=== PATIENT | male | born 1945 | race Caucasian/White ===

== ENCOUNTER 2016-08-24 19:05 | Emergency (ER) ==
[2016-08-24 19:10] VITALS: BP 146/88; TEMP 97.8; BMI 27.0
[2016-08-24 19:26] LABS: BASOPHILS % (AUTO) 0.5 % (0.0-3.0); EOSINOPHILS # (AUTO) 0.2 K/ul (0.0-0.7); EOSINOPHILS % (AUTO) 1.9 % (0.0-7.0); HEMATOCRIT 42.7 % (42.0-52.0); HEMOGLOBIN 15.3 g/dl (14.0-18.0); IMMATURE GRANULOCYTE % (AUTO) 0.4 % (0.0-5.0); LYMPHOCYTES # (AUTO) 2.1 K/uL (0.60-3.4); LYMPHOCYTES % (AUTO) 26.3 (10.0-50.0); MEAN CORPUSCULAR HEMOGLOBIN 32.8 pg (27.0-31.0); MEAN CORPUSCULAR HGB CONC 35.8 (31.8-35.4); MEAN CORPUSCULAR VOLUME 91.4 fl (80.0-94.0); MONOCYTES # (AUTO) 0.7 K/uL (0.4-2.0); MONOCYTES % (AUTO) 8.1 (0-10); NEUTROPHILS # (AUTO) 5.1 K/ul (2.0-6.9); NEUTROPHILS % (AUTO) 62.8; PLATELET COUNT 209 10^3/uL (140-440); RED BLOOD COUNT 4.67 10^6/ul (4.70-6.10); WHITE BLOOD COUNT 8.06 K/ul (4.2-10.2)
[2016-08-24] MEDS ORDERED: SODIUM CHLORIDE 1,000 ML IV STA (19:53)
[2016-08-24] MEDS ORDERED: NITROSTAT SL STA (19:53)
[2016-08-24] MEDS ORDERED: ASPIRIN CHEWABLE PO STA (19:56)
--- NOTE | 2016-08-24 19:57 | CT ---
EXAM: Noncontrast CT of the abdomen and pelvis. HISTORY: Pain. COMPARISON: None. TECHNIQUE: Contiguous axial images at 3 mm intervals were obtained from lung bases through the pelv is. No contrast was given. Coronal reformats were reviewed. FINDINGS: The study is limited without contrast. CHEST: The lung bases show no lobar consolidation or effusion. Linear opacities seen in the right l davy base which has appearance of fibrotic change. There is pleural thickening in the major fissure on the left. Coronary calcifications are seen.The heart size is within normal limits. ABDOMEN: Evaluation of the soft tissue organs is limited without contrast. LIVER: Noncontrast images of the liver show no solid mass lesion or intrahepatic ductal dilatation. BILIARY: The gallbladder is absent. There are clips in the gallbladder fossa. No fluid or inflamm ation. The common bile duct is normal. SPLEEN: The spleen is unremarkable. PANCREAS: The pancreas shows no mass lesion or peripancreatic inflammation. The pancreas is mildly atrophic. ADRENAL GLANDS: The adrenal glands are normal. RENAL: The kidneys show no hydronephrosis or nephrolithiasis. There are no obstructing ureteral st ones. No solid mass lesions are identified. RETROPERITONEUM: The aorta is unopacified. No aneurysm is identified. Heavy aortic calcifications are seen. There is no retroperitoneal or mesenteric adenopathy. BOWEL: The bowel is unopacified. There is no obstruction or inflammatory change. There is no free fluid or free air. No significant inflammatory changes are seen. The appendix is not identifie d. There is no fluid or inflammation in the right lower quadrant. Diverticulosis is seen in the de scending colon. There is no bowel wall thickening or surrounding inflammation. There is an umbilical hernia containing peritoneal fat. The defect measures approximately 1.8 cm. PELVIS: BLADDER: The bladder is well distended and appears normal. GENITOURINARY STRUCTURES: The prostate is unremarkable. OSSEOUS STRUCTURES: The osseous structures are normal for age. IMPRESSION 1. No acute intra-abdominal abnormality. Limited study without contrast. No obstructing ureteral stones. 2. The appendix is not identified. There is no fluid or inflammation in the right lower quadrant. 3. Diverticulosis without definite evidence of acute diverticulitis. 4. Coronary artery disease. Atherosclerotic disease of the aorta. 5. Post cholecystectomy.
--- NOTE | 2016-08-24 19:58 | CT ---
EXAM: CT THORAX HISTORY: Chest pain. TECHNIQUE: CT thorax without intravenous contrast. 5-mm axial sections. Coronal and sagittal re-fo rmations. COMPARISON: None FINDINGS: Normal heart size. No pericardial effusion. There is dilatation of the ascending aorta at 4 cm. M ild calcific atheromatous disease. A few nonspecific mediastinal and hilar lymph nodes. Lungs are mildly hyperinflated. Chronic appearing interstitial changes are seen throughout. There is discoid interstitial thickening along the posterior mediastinal pleura, right lower lobe. A few tiny nodular foci are seen in the lateral left lung base. Otherwise the lungs are unremarkable. Th ere is no vascular congestion, pleural fluid or pneumothorax. The bones appear demineralized. There is mild scoliosis. Mild to moderate degenerative endplate ch anges mid spine. Early ankylosis of the thoracic spine. No fracture is no acute fracture is seen. IMPRESSION: 1. Ascending aortic caliber dilatation to 4 cm. Mild atherosclerotic disease. 2. Chronic appearing interstitial changes are seen throughout. There is discoid interstitial thick ening along the posterior mediastinal pleura, right lower lobe and a few tiny nodular foci are seen in the lateral left lung base. These may be fibrotic in nature. Follow-up CT is recommended in 4-6 months. Otherwise the lungs are unremarkable.
[2016-08-24 20:19] LABS: ALBUMIN 3.9 g/dL (3.4-5.0); ALBUMIN/GLOBULIN RATIO 1.03; ANION GAP 14.5; BILIRUBIN,TOTAL 0.88 mg/dL (0.00-1.20); BUN/CREATININE RATIO 10.4; CALCIUM 9.2 mg/dL (8.2-10.2); CREATININE 1.25 mg/dL (0.60-1.10); POTASSIUM 3.5 mmol/L (3.5-5.1); TOTAL PROTEIN 7.7 g/dL (5.8-8.1); TROPONIN I 0.014 ng/ml (0.0000-0.4000)
[2016-08-24 20:21] LABS: CREATINE KINASE MB 9.7 ng/ml (0.0-3.6)
[2016-08-24] MEDS ORDERED: ZOFRAN 4 MG/2 ML IVP STA (20:28)
[2016-08-24] MEDS ORDERED: MORPHINE 4 MG/ML SYRINGE IVP STA (20:28)
[2016-08-24 20:32] LABS: BILIRUBIN,URINE Negative (NEGATIVE); KETONES,URINE Negative (NEGATIVE); LEUKOCYTE ESTERASE ,URINE Negative (NEGATIVE); NITRITE,URINE Negative (NEGATIVE); PROTEIN,URINE Negative (NEGATIVE); URINE, BLOOD Negative (NEGATIVE)
[2016-08-24 20:33] LABS: ADD URINE MICROSCOPIC NO
--- NOTE | 2016-08-24 20:43 | ED.PDOC ---
General ED Provider: Dr. ELIA HUTTON Chief Complaint: Chest Pain Stated Complaint: Patient is a 70 year old male who comes to the ER with chest pressure at rest and with activity. Describes it as a pressure rates it as 8/10 with radiation to the left arm. Denies any N/V or Diaphoresis Time Seen by Physician: 20:41 Mode of Arrival: Walk-In Information Source: Patient Primary Care Provider: RAOUL HUBER Nursing and Triage Documentation Reviewed and Agree: Yes Cardiovascular Complaint Exam - Chest Pain Complaint/Exam Onset: Gradual Duration: constant Symptoms Are: Still present Timing: Constant Length of Chest Pain Episodes: 2 days Initial Severity: Moderate Current Severity: Severe Location: Reports: Left anterior Pain Radiates: Reports: Left arm Character: Reports: Pressure Aggravating: Reports: Exertion Alleviating: Reports: None Associated Signs and Symptoms: Reports: Short of air. Denies: Diaphoresis, Nausea, Vomiting, Fever, Palpitations, Cough, Hemoptysis, Back pain, Abdominal pain, Dizziness, Calf pain, Calf swelling Related History: Denies: Similar episode, Current Freeman Inhibitors AMI/ACS Risk Factors: Reports: Myocardial Infarction, Family history, Hypertension, Dyslipidemia. Denies: Smoking TAD Risk Factors: Reports: Hypertension. Denies: Smoking Pulmonary Embolism Risk Factors: Denies: Recent travel, DVT, Previous PE, Smoking Prior Care for this Complaint: No Recent Stress Test: No (last stress test was was [address] Avalos) Recent Echo/LV Function: No JVD Present: No Subcutaneous Emphysema Present: No Diminshed Breath Sounds: No Reproducible Chest Wall Pain: No Bilateral Pulses Present: No Unequal Pulses Noted: No If Risk Factors for AMI/ACS Consider: EKG, Cardiac Enzymes, Oxygen, Aspirin Documents Reviewed: Labs, Imaging, EKG Differential Diagnoses: ACS, Pulmonary Edema Review of Systems - Review Of Systems Constitutional: Denies: Weakness, Loss of appetite Eyes: Reports: No symptoms Ears, Nose, Mouth, Throat: Reports: No symptoms Cardiac: Reports: Chest pain GI: Reports: No symptoms : Reports: No symptoms Musculoskeletal: Reports: No symptoms Skin: Reports: No symptoms Neurological: Reports: Anxiety Endocrine: Reports: No symptoms Hematologic/Lymphatic: Reports: No symptoms All Other Systems: Reviewed and Negative Past Medical History - Past Medical History Endocrine: Reports: Dyslipidemia Cardiovascular: Reports: CAD, Hypertension Respiratory: Reports: None Hematological: Reports: None Gastrointestinal: Reports: GERD Genitourinary: Reports: None Neuro/Psych: Reports: None Musculoskeletal: Reports: Arthritis Cancer: Reports: None - Surgical History General Surgical History: Reports: Cholecystectomy, Orthopedic (Fusion of C1-4 and C 5-6 ), Other (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 ) - Family History Family History: Reports: Heart - Social History Smoking Status: Never smoker Hx Substance Use: No Alcohol Screening: Occasionally - Immunizations Tetanus Shot up to Date: No Physical Exam - Physical Exam Appearance: Ill-appearing Ill-appearing: Moderate Pain Distress: Severe Eyes: PÉREZ, EOMI, Conjunctiva clear Neck: Supple Respiratory: Airway patent, Breath sounds clear, Breath sounds equal, Respirations nonlabored Cardiovascular: RRR, Pulses normal, No rub, No murmur GI/: Soft, Nontender, No masses, Bowel sounds normal, No Organomegaly Musculoskeletal: Normal strength, ROM intact, No edema, No calf tenderness Skin: Warm, Dry, Normal color Neurological: Sensation intact Psychiatric: Anxious Interpretation - Radiology Interpretation Radiology Interpretation By: Radiologist Radiology Results: No acute changes Exam Interpreted: CT 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 Rate: Normal Rhythm: Sinus Ectopy: None - EKG Interpretation Time of EKG #1: 19:15 Rate: Normal Rhythm: Sinus Ectopy: None Fisher: NL ST Segment: Normal Interpretation: normal EKG Physician Notification - Case Discussed Physician Notified: GILDARDO Time of Notification: 21:20 (Acepted pateint for transfer.) Critical Care Note - Critical Care Note Total Time (mins): 30 Course - Course Hematology/Chemistry: 08/24/16 19:15 08/24/16 19:15 Orders, Labs, Meds: Lab Review 08/24/16 08/24/16 19:15 20:20 WBC 8.06 RBC 4.67 L Hgb 15.3 Hct 42.7 MCV 91.4 MCH 32.8 H MCHC 35.8 H RDW Coeff of Melanie 12.4 Plt Count 209 Immature Gran % (Auto) 0.4 Neut % (Auto) 62.8 Lymph % (Auto) 26.3 [place] % (Auto) 8.1 Eos % (Auto) 1.9 Baso % (Auto) 0.5 Immature Gran # (Auto) 0.0 Neut # 5.1 Lymph # 2.1 [place] # 0.7 Eos # 0.2 Baso # 0.0 D-Dimer (Manual) 306.43 Sodium 139 Potassium 3.5 Chloride 103 Carbon Dioxide 25 Anion Gap 14.5 BUN 13 Creatinine 1.25 H Estimated GFR (MDRD) 57.00 BUN/Creatinine Ratio 10.40 Glucose 90 Calcium 9.2 Total Bilirubin 0.88 AST 26 ALT 30 Alkaline Phosphatase 78 Total Creatine Kinase 450 CK-MB (CK-2) 9.7 H* CK-MB (CK-2) % 2.87948 Troponin I 0.0140 Total Protein 7.7 Albumin 3.9 Globulin 3.8 Albumin/Globulin Ratio 1.03 Amylase 47 Lipase 17 Urine Color Yellow Urine Clarity Clear Urine pH 5.0 Ur Specific Range 1.010 Urine Protein Negative Urine Glucose (UA) Negative Urine Ketones Negative Urine Blood Negative Urine Nitrite Negative Urine Bilirubin Negative Urine Urobilinogen 0.2 Ur Leukocyte Esterase Negative Orders Category Date Time Status EKG-(ED ONLY) Stat CARDIO 08/24/16 19:09 Completed IV [ED IV/MEDIPORT/POWERPORT] .ONCE EMERGENCY 08/24/16 19:21 Active AMYLASE Stat LAB 08/24/16 19:15 Completed CBC W/ AUTO DIFF Stat LAB 08/24/16 19:15 Completed COMPREHENSIVE METABOLIC PANEL Stat LAB 08/24/16 19:15 Completed CREATINE KINASE Stat LAB 08/24/16 19:15 Completed D-DIMER Stat LAB 08/24/16 19:15 Completed LIPASE Stat LAB 08/24/16 19:15 Completed TROPONIN I Stat LAB 08/24/16 19:15 Completed URINALYSIS C & S IF INDICATED Stat LAB 08/24/16 20:20 Completed 0.9 % Sodium Chloride [Saline Flush] MEDS 08/24/16 19:21 Ordered 1 syr IVF PRN PRN Aspirin [Aspirin Chewable] MEDS 08/24/16 19:56 Discontinued 324 mg PO ONCE STA Morphine Sulfate [Morphine 4 mg/ml Syringe] MEDS 08/24/16 20:28 Discontinued 4 mg IVP ONCE STA Nitroglycerin [Nitrostat] MEDS 08/24/16 19:53 Discontinued 0.4 mg SL ONCE STA Ondansetron HCl/Pf [Zofran 4 mg/2 ml] MEDS 08/24/16 20:28 Discontinued 4 mg IVP ONCE STA Sodium Chloride 0.9% [Sodium Chloride] 1,000 ml MEDS 08/24/16 19:53 Active IV 100 mls/hr CT ABDOMEN/PELVIS WO CONTRAST Stat RADS 08/24/16 19:[address] CHEST W/O CONTRAST Stat RADS 08/24/16 19:10 Completed Medications Generic Name Dose Route Start Last Admin Trade Name Freq PRN Reason Stop Dose Admin Sodium Chloride 1,000 mls @ 100 mls/hr 08/24/16 19:53 08/24/16 20:00 Sodium Chloride IV 08/25/16 05:52 100 mls/hr .Q10H STA Administration Sodium Chloride 1 syr 08/24/16 19:21 08/24/16 20:00 Saline Flush IVF 1 syr PRN PRN Administration To flush IV Discontinued Medications Generic Name Dose Route Start Last Admin Trade Name Freq PRN Reason Stop Dose Admin Aspirin 324 mg 08/24/16 19:56 08/24/16 20:00 Aspirin Chewable PO 08/24/16 19:57 324 mg ONCE STA Administration Morphine Sulfate 4 mg 08/24/16 20:28 08/24/16 20:38 Morphine 4 Mg/Ml Syringe IVP 08/24/16 20:29 4 mg ONCE STA Administration Nitroglycerin 0.4 mg 08/24/16 19:53 08/24/16 20:00 Nitrostat SL 08/24/16 19:54 0.4 mg ONCE STA Administration Ondansetron HCl 4 mg 08/24/16 20:28 08/24/16 20:38 Zofran 4 Mg/2 Ml IVP 08/24/16 20:29 4 mg ONCE STA Administration Vital Signs: Temp Pulse Resp BP Pulse Ox 08/24/16 19:06 97.8 F 75 18 146/88 H 95 BAUTISTA Risk Score Age >/= 65: Yes >/= 3 CAD Risk Factors: Yes ASA Use in Past 7 Days: No Severe Angina (>/= 2 episodes in 24 hours): Yes EKG ST Changes >/= 0.5mm: No BAUTISTA Total Score: 3 BAUTISTA Risk Score: Risk Score Odds of by 30D 0 0.1 (0.1-0.2) 1 0.3 (0.2-0.3) 2 0.4 (0.3-0.5) 3 0.7 (0.6-0.9) 4 1.2 (1.0-1.5) 5 2.2 (1.9-2.6) 6 3.0 (2.5-3.6) 7 4.8 (3.8-6.1) Departure - Departure Time of Disposition: 21:31 Disposition: TSF SHORT-TRM HOSP Discharge Problem: Chest pain Condition: Serious Pt referred to PMD for follow-up: Yes Allergies/Adverse Reactions: Allergies alatrofloxacin mesylate [From Trovan] Allergy (Unverified 08/24/16 19:10) dexlansoprazole [From Dexilant] Allergy (Unverified 08/24/16 19:10) niacin [From Niaspan Extended-Release] Allergy (Unverified 08/24/16 19:10) trovafloxacin mesylate [From Trovan] Allergy (Unverified 08/24/16 19:10) lisinopril Adverse Reaction (Unverified 08/24/16 19:10) Home Medications: Ambulatory Orders Albuterol Sulfate [Proair Hfa] 2 inh PO BID PRN 01/22/13 Aspirin [Aspirin Chewable] 81 mg PO DAILY 01/22/13 Gabapentin [Neurontin] 2 tab PO TID 01/22/13 Hydrocodone/Acetaminophen [Lortab 5-500 Tablet] 1 tab PO BID PRN 01/22/13 Atorvastatin Calcium 40 mg PO DAILY 03/02/15 Metoprolol Succinate 150 mg PO DAILY 03/02/15 Omeprazole 20 mg PO DAILY 03/02/15 Tiotropium Anderson [Spiriva] 18 mcg IH DIRECTED PRN 03/02/15 Chlordiazepoxide/Clidinium Br [Librax Capsule] 1 each PO TID 06/20/16 Albuterol Sulfate [Proventil Hfa] 1 inh INH DIRECTED 08/24/16 Baclofen 10 mg PO TID 08/24/16 Budesonide/Formoterol Fumarate [Symbicort 80-4.5 Mcg Inhaler] 2 puff IH BID Chlorthalidone 25 mg PO DAILY 08/24/16
== END 2016-08-24 22:15 | disposition short-term general hospital (02) ==
LOC: ED 19:05
DX: R07.89 Other chest pain (principal); R06.02 Shortness of breath; R53.1 Weakness; E78.5 Hyperlipidemia, unspecified; I25.10 Atherosclerotic heart disease of native coronary artery without angina pectoris; I11.9 Hypertensive heart disease without heart failure; Z79.899 Other long term (current) drug therapy
CPT/HCPCS: 36415; 80053; 81001; 82150; 82550; 82553; 83690; 84484; 85025; 85379; 93005; 93010; 96360; 96361; 96375; 99285

== ENCOUNTER 2016-08-24 22:20 | Outpatient (CLI) ==
[2016-08-24 19:10] VITALS: BMI 27.0
== END 2016-08-24 22:21 | disposition home or self-care (01) ==
LOC: AMBL 22:20
PROVIDERS: ATTEND Internal Medicine Geriatric Medicine
DX: R07.9 Chest pain, unspecified (principal); R79.89 Other specified abnormal findings of blood chemistry

== ENCOUNTER 2017-01-02 06:40 | Day surgery (SDC) ==
[2017-01-02] MEDS ORDERED: LIDOCAINE 1% 20 ML MDV ID ONE (07:20)
[2017-01-02] MEDS ORDERED: VERSED ONE (07:50)
[2017-01-02] MEDS ORDERED: DIPRIVAN 20 ML VIAL IVP ONE (07:50)
[2017-01-02 08:52] VITALS: BP 143/92; TEMP 98
--- NOTE | 2017-01-03 06:47 | OP ---
INDICATIONS FOR PROCEDURE: 71-year-old gentleman with a history of adenomatous polyps on colonoscopy examination three years ago presents for colonoscopy. MEDICATIONS: SEE ANESTHESIA NOTES. PROCEDURE: COLONOSCOPY, SNARE POLYPECTOMY. REPORT: The risks, benefits, alternatives and limitations were discussed in detail with the patient. Informed consent was obtained. After adequate sedation was achieved, a digital rectal exam revealed good tone, no masses. The colonoscope was introduced into the rectum and advanced under direct visual guidance to the cecum. The cecum was identified by the appendiceal orifice and IC valve. In the cecum there is a diminituve 4 or 5 mm polyp. I removed this by snare technique. I then slowly withdrew the scope in a circumferential manner examining the mucosa quite carefully. I looked on the proximal and distal side of folds and flexures as best as possible. I was able to retroflex the scope in the right colon and left colon to increase visualization. I noted mild melanosis coli throughout the entire length of the colon but no other abnormalities were noted. The scope was retroflexed to look at the anal canal as well which was unremarkable. The prep was good. The withdrawal time was 7 minutes and 49 seconds. The patient tolerated the procedure well with stable vital signs and pulse oximetry throughout. IMPRESSION: 1. SMALL POLYP REMOVED 2. MELANOSIS COLI RECOMMENDATIONS: 1. High fiber diet 2. Office visit as needed 3. Await polyp pathology. If everything is benign, I recommend repeat colonoscopy examination again in 5 years, sooner if there are any signs or symptoms to indicate otherwise. CC: Dr. Geena GUEVARA [facility] HOSPITALCamilla
== END 2017-01-02 09:00 | disposition home or self-care (01) ==
LOC: SURG 06:40
PROVIDERS: ATTEND Internal Medicine Gastroenterology
DX: Z09 Encounter for follow-up examination after completed treatment for conditions other than malignant neoplasm (principal); Z86.010 Personal history of colon polyps; D12.0 Benign neoplasm of cecum; K63.89 Other specified diseases of intestine

== ENCOUNTER 2017-08-14 10:39 | Outpatient (POV) | payer OTHER | END 2017-08-14 17:00 | LOC: OUTPT 10:39 | PROVIDERS: ATTEND Otolaryngology | DX: H91.90 Unspecified hearing loss, unspecified ear (principal) | CPT/HCPCS: 92557; 92567 ==

== ENCOUNTER 2018-03-30 09:52 | Outpatient (CLI) | payer OTHER | END 2018-03-30 10:12 | disposition short-term general hospital (02) | LOC: AMBL 09:52 | PROVIDERS: ATTEND Emergency Medicine | DX: R47.9 Unspecified speech disturbances (principal); R29.810 Facial weakness; R53.1 Weakness; R26.81 Unsteadiness on feet ==

== ENCOUNTER 2018-04-19 10:10 | Outpatient (CLI) | payer OTHER ==
--- NOTE | 2018-04-19 13:02 | DI ---
EXAM: CHEST FRONTAL AND LATERAL VIEWS HISTORY: Cough, wheezing. COMPARISON: 11/06/2011 FINDINGS: Heart size remains within normal limits. There is minimal patchy density in the left base . There is diffuse, chronic appearing interstitial accentuation. Lungs are hyperinflated. Normal v ascularity. No pleural fluid. IMPRESSION: 1. Chronic-appearing interstitial changes with hyperinflation. Correlate clinically for any evidenc e of chronic obstructive pulmonary disease. 2. Minimal density in the left base could represent pneumonia. Consider follow-up to assure clearan ce.
== END 2018-04-19 10:11 | disposition home or self-care (01) ==
LOC: RAD 10:10
PROVIDERS: ATTEND Internal Medicine
DX: R06.2 Wheezing (principal); R05 Cough

== ENCOUNTER 2018-07-18 11:15 | Outpatient (CLI) | END 2018-07-18 11:16 | disposition home or self-care (01) | LOC: NONPT 11:15 | PROVIDERS: ATTEND Student in an Organized Health Care Education/Training Program | DX: Z12.5 Encounter for screening for malignant neoplasm of prostate (principal) ==

== ENCOUNTER 2025-02-12 08:17 | Inpatient (IN) ==
--- NOTE | 2025-02-12 08:26 | ED.PDOC ---
General [facility] ED Provider: Dr. ASHA SINGH MD Chief Complaint: Cough Stated Complaint: Patient is a 79-year-old male that reported to the emergency department via EMS for generalized weakness, cough, and diarrhea. Patient stated that yesterday he went to [place] and was fine was able to walk around without any issues. Patient stated that he started to get a productive cough last night that had yellowish sputum. Patient stated that he has not had any fever that he knows of. Patient stated that he woke up this morning and had generalized weakness. Patient stated that he normally ambulates with a walker but has not been able to ambulate due to his weakness this morning. EMS stated that the patient had an O2 sat of 85% on room air. They stated that the patient has home O2 2 L that he uses at night. Patient denied any chronic pulmonary disease. Patient stated that he has had a cough for several years however his cough has worsened as mentioned previously overnight. Patient stated that he does not know if he has been around any other sick contacts. Patient denied any chest pain, nausea, vomiting, dizziness, syncope, or loss of consciousness or any other acute symptoms not currently mentioned in his HPI. In the emergency department patient is tachycardic with a heart rate of 108 bpm. Patient's O2 sat on 2 L nasal cannula is 91%. Will increase patient's nasal cannula up to 4 L to keep his O2 sat above 94%. Patient is febrile with a temperature of 102.6 Fahrenheit. Patient's blood pressures 160/75. Patient's GCS is 15. NIH score is 0. Time Seen by Provider: 02/12/25 08:20 Mode of Arrival: Walk-In Information Source: EMT Exam Limitations: No limitations Primary Care Provider: RAOUL HUBER Nursing and Triage Documentation Reviewed and Agree: Yes Opioid Naive vs. Tolerant What is Opioid Naive?: *Opioid Naive implies the patient is not already taking opioids or not chronically receiving opioids on a daily basis. *PRN dosing is not "usually" associated with tolerance. *Patients are at higher risk of over-sedation and aspiration. What is Opioid Tolerant?: *Opioid Tolerance implies less than the expected response to an opioid. *Acquired tolerance is defined by the patient taking 60mg of oral morphine daily (or equianalgesic dose of another opioid) for 1 week or more. *Often associated with chronic pain. *May take more than usual dose to achieve desired pain control. Review of Systems Review Of Systems Constitutional: Reports No symptoms and Fever Respiratory: Reports Cough; Denies Stridor or Wheezing Neurological: Reports Weakness All Other Systems: Reviewed and Negative [facility] Medical History Anxiety Asthma Cervical pain Heart valve disease Hypertension Joint stiffness of spine Laceration of finger Muscle tightness Radicular pain Social History Smoking and tobacco status: Never smoker Alcohol intake: never Substance use type: does not use Housing: house Highest education level completed: high school graduate Current occupational status: retired Leisure activites: games and other History of recent travel: No Seatbelt use: always Drives intoxicated or rides with 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 Water heater temperature set < 120 degrees: Yes Working smoke detector in home: Yes Fire extinguisher in home: Yes Carbon monoxide detector in home: Yes Surgical History History of ear, nose, and throat (ENT) surgery History of gastrointestinal surgery Physical Exam Physical Exam Appearance: Reports Ill-appearing Ill-appearing: Moderate Pain Distress: None Eyes: Reports PÉREZ, EOMI and Conjunctiva clear ENT: Reports Nose normal and Oropharynx normal Neck: Supple Respiratory: Reports Airway patent, Breath sounds equal and Crackles (Crackles noted in the right lower lung field.) Cardiovascular: Reports Pulses normal, No rub and Tachycardia (Apical pulse is 108 bpm.) GI/: Reports Soft, Bowel sounds normal and Tender (Generalized tenderness to palpation.) Musculoskeletal: Reports Normal strength, ROM intact, No edema and No calf tenderness Skin: Reports Warm, Dry and Normal color Neurological: Reports Sensation intact, Motor intact, Alert and Oriented Psychiatric: Reports Affect appropriate and Mood appropriate Physician Progress Note Physician Progress Note: Patient is a 79-year-old male that reported to the emergency department via EMS for generalized weakness, cough, and diarrhea. Patient stated that yesterday he went to [place] and was fine was able to walk around without any issues. Patient stated that he started to get a productive cough last night that had yellowish sputum. Patient stated that he has not had any fever that he knows of. Patient stated that he woke up this morning and had generalized weakness. Patient stated that he normally ambulates with a walker but has not been able to ambulate due to his weakness this morning. EMS stated that the patient had an O2 sat of 85% on room air. They stated that the patient has home O2 2 L that he uses at night. Patient denied any chronic pulmonary disease. Patient stated that he has had a cough for several years however his cough has worsened as mentioned previously overnight. Patient stated that he does not know if he has been around any other sick contacts. Patient denied any chest pain, nausea, vomiting, dizziness, syncope, or loss of consciousness or any other acute symptoms not currently mentioned in his HPI. In the emergency department patient is tachycardic with a heart rate of 108 bpm. Patient's O2 sat on 2 L nasal cannula is 91%. Will increase patient's nasal cannula up to 4 L to keep his O2 sat above 94%. Patient is febrile with a temperature of 102.6 Fahrenheit. Patient's blood pressures 160/75. Patient's GCS is 15. NIH score is 0. - Due to patient's fever and tachycardia we will treat patient for sepsis. Will give the patient IV 1 L lactated ringer bolus. Will give the patient p.o. Tylenol 1 g for fever. Will give the patient broad-spectrum antibiotics for sepsis. Will give IV Zosyn 4.5 g. Will give IV methylprednisolone 125 mg once for inflammation. - Will order CT of the chest to rule out pneumonia as patient was found to have crackles in the right lower lobe. Will order CT of the abdomen and pelvis without contrast due to patient's generalized abdominal discomfort. - Will order EKG, troponin, and baseline labs - Will continue patient's O2 nasal cannula at 4 L nasal cannula to keep his O2 sat above 94%. - EKG shows sinus tachycardia with a ventricular rate of 105 bpm. Normal axis noted. No acute STEMI. EKG interpreted by ER physician. - Troponin is negative. - CT of the chest showed: 1. There is pneumonic infiltrate bilateral lungs with patchy opacities bilaterally most consistent with atypical pneumonia. Some scarring at the lung basis is suggested as well as groundglass opacities felt to represent earlier infiltrates. A well-defined mass or stand alone nodule is not seen. There are some underlying chronic changes otherwise. 2. Ascending aorta is prominent at 4.5 cm with vascular and coronary artery calcification without dissection suggested. Heart is prominent with mild pericardial fluid. 3. Likely reactive lymph nodes within the chest which are enlarged within the mediastinal region. 4. Small hiatal hernia without complication. 5. Fatty liver without abnormal finding. Cholecystectomy without abnormal finding. Minimal fatty atrophy of the pancreas. No acute process upper abdomen. 6. Bony degenerative change with osteopenia. Multilevel compression deformities some of which are similar when compared to the 2017 exam though a few are new or increased but of uncertain age as above. No displacement or other significant bony or soft tissue finding. - CT of the abdomen showed Coronary ASVD. Bilateral pneumonia. Follow-up to resolution is recommended. Prior cholecystectomy. Nonobstructive bilateral nephrolithiasis and bilateral renal cysts as described. Stool retention within the colon. Prominent small bowel within the pelvis which may be related to ileus versus gastroenteritis. Prostatic enlargement. - Per patient CURB 65 score patient rates to admission to the hospital. Will contact hospitalist for admission for this patient. - ([phone]) contacted hospitalist, Topher Monroy NP for admission for this patient. Was not able to get in touch with Topher. Will wait for return phone call. If no return phone call in approximately 5 to 10 minutes will try Topher again. - ([phone]) spoke to Topher Monroy NP hospitalist at [facility] about patient's bilateral pneumonia and other lab and radiograph findings at today's visit. She has agreed to admit this patient for bilateral pneumonia and acute hypoxic respiratory failure. Patient's vital signs are stable at time of admission. Critical Care Note Critical Care Note Total Critical Care Time (mins): 30 Comments: Critical Care Procedure Note Authorized and Performed by: Dr. Asha Singh MD, MPH Total critical care time: 30 minutes Due to a high probability of clinically significant, life threatening deterioration, the patient required my highest level of preparedness to intervene emergently and I personally spent this critical care time directly and personally managing the patient. This critical care time included obtaining a history; examining the patient; pulse oximetry; ordering and review of studies; arranging urgent treatment with development of a management plan; evaluation of patient's response to treatment; frequent reassessment; and, discussions with other providers. This critical care time was performed to assess and manage the high probability of imminent, life-threatening deterioration that could result in multi-organ failure. It was exclusive of separately billable procedures and treating other patients and teaching time. Please see MDM section and the rest of the note for further information on patient assessment and treatment. Course Course 02/12/25 08:35 02/12/25 08:35 Orders, Labs, Meds: Lab Review 02/12/25 02/12/25 08:35 09:37 WBC 6.90 RBC 3.66 L Hgb 11.4 L Hct 35.8 L MCV 97.8 H MCH 31.1 H MCHC 31.8 RDW Coeff of Melanie 12.9 Plt Count 153 Immature Gran % (Auto) 0.3 Neut % (Auto) 83.0 H Lymph % (Auto) 8.8 L Woodruff % (Auto) 6.8 Eos % (Auto) 1.0 Baso % (Auto) 0.1 Neut # (Auto) 5.7 Lymph # (Auto) 0.6 Woodruff # (Auto) 0.5 Eos # (Auto) 0.1 Baso # (Auto) 0.0 Immature Gran # (Auto) 0.0 Sodium 135.0 Potassium 4.64 Chloride 95.8 L Carbon Dioxide 30.6 H Anion Gap 13.24 BUN 13.7 Creatinine 1.21 H Estimated GFR (MDRD) 58.00 BUN/Creatinine Ratio 11.32 Glucose 104.4 Lactic Acid 1.69 Calcium 9.34 Magnesium 1.58 L Total Bilirubin 0.85 AST 35.5 ALT 22.7 Alkaline Phosphatase 74.6 Troponin I < 0.012 Total Protein 8.11 Albumin 3.97 Globulin 4.14 Albumin/Globulin Ratio 0.95 Procalcitonin < 0.05 Influ A Molecular Assay Negative by naat Influ B Molecular Assay Negative by naat SARS CoV-2 RNA Rapid NAHID Negative Orders Category Date Time Status EKG-(ED & IP/OBS ONLY) Stat CARDIO 02/12/25 08:20 Completed 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 President [employer] Sales [ED DEVELOPMENT LEAD APPLIED] .ONCE EMERGENCY 02/12/25 08:20 Active CBC W/ AUTO DIFF Stat LAB 02/12/25 08:35 Completed CMP [COMPREHENSIVE METABOLIC PANEL] Stat LAB 02/12/25 08:35 Completed COVID [SARS COV-2 RNA RAPID NAHID] Stat LAB 02/12/25 09:37 Completed FLU A & B MOLECULAR [FLU A/B MOLECULAR] Stat LAB 02/12/25 09:37 Completed LACTIC ACID Stat LAB 02/12/25 08:35 Completed MAGNESIUM Stat LAB 02/12/25 08:35 Completed PROCALCITONIN Stat LAB 12/18/25 08:35 Completed RAPID STREP SCREEN [MOLECULAR GROUP A STREP] Stat LAB 02/12/25 09:37 Completed TROPONIN I Stat LAB 02/12/25 08:35 Completed Methylprednisolone Sod Succ/Pf [Solu-Medrol 125 mg] Meds 02/12/25 10:13 Discontinued 125 mg IVP ONCE ONE Piperacillin Sodium/Tazobactam [Zosyn 4.5 gm] 4.5 gm Meds 02/12/25 08:29 Discontinued 0.9 % Sodium Chloride [Sodium Chloride 100Ml] 100 ml IV ONCE Ringers Lactated Solution [Lactated Ringers] 1,000 ml Meds 02/12/25 08:[address] ABDOMEN/PELVIS WO CONTRAST Stat RADS 02/12/25 08:[address] CHEST W/O CONTRAST Stat RADS 02/12/25 08:20 Completed Medications Discontinued Medications Generic Name Dose Route Start Last Admin Trade Name Freq PRN Reason Stop Dose Admin Lactated Ringer's 1,000 mls @ 1,000 mls/hr 02/12/25 08:20 02/12/25 10:12 Lactated Ringers IV 02/12/25 09:19 1,000 mls/hr BOLUS ONE Administration Piperacillin Sod/Tazobactam 100 mls @ 200 mls/hr 02/12/25 08:29 02/12/25 09:31 Sod 4.5 gm/ Sodium Chloride IV 02/12/25 08:58 200 mls/hr ONCE ONE Administration Methylprednisolone Sodium Succinate 125 mg 02/12/25 10:13 Methylprednisolone Sod Succ/Pf 125 Mg/2 Ml Vial IVP 02/12/25 10:14 ONCE ONE Vital Signs: Temp Pulse Resp BP Pulse Ox O2 Flow Rate 02/12/25 08:38 4 02/12/25 08:24 99.8 F 107 H 20 160/75 H 92 L Discharge Plan Discharge Patient Disposition: ADMITTED INPATIENT Discharge Problem: Acute hypoxic respiratory failure, Bilateral lower lobe pneumonia, Fatty liver, Hernia, hiatal, Degenerative disc disease, cervical, DDD (degenerative disc disease), thoracic, Bilateral nephrolithiasis, Bilateral renal cysts, Hypomagnesemia Sepsis Qualifiers: Sepsis type: sepsis due to unspecified organism Sepsis acute organ dysfunction status: with acute organ dysfunction Severe sepsis acute organ dysfunction type: acute respiratory failure Acute respiratory failure type: with hypoxia Severe sepsis shock status: without septic shock Qualified Code(s): A41.9 - Sepsis, unspecified organism Osteopenia Qualifiers: Osteopenia location: spine Qualified Code(s): M85.88 - Other specified disorders of bone density and structure, other site Did you review [place] [employer] for ALL controlled substances?: Not Applicable ED Provider: ASHA SINGH Condition: Stable
[2025-02-12 08:47] LABS: IMMATURE GRANULOCYTE # (AUTO) 0.0 (0.0-1.0); IMMATURE GRANULOCYTE % (AUTO) 0.3 % (0.0-5.0); RDW COEFFICIENT OF VARIATION 12.9 % (11.6-14.8)
[2025-02-12 08:59] LABS: CREATININE 1.21 mg/dL (0.60-1.10)
--- NOTE | 2025-02-12 09:28 | CT ---
EXAM: CHEST CT WITHOUT CONTRAST HISTORY: Cough. Rule out pneumonia. TECHNIQUE: CT acquisition of the chest from the thoracic inlet to the upper abdomen without IV contrast administration. 2-D coronal and sagittal reformatted images were obtained from the axial source images. IV Contrast: None. CT Dose Reduction Techniques Performed: Yes. COMPARISON: Abdomen and pelvis CT of the same date. Chest CT 08/24/2016. FINDINGS: Lines, Tubes, Devices: None. Lung Parenchyma and Airways: Central airways are patent without endobronchial lesion. There may be some bronchial wall thickening particularly within the lower lobes bilaterally. Patchy airspace opacities are seen throughout the lungs greatest within the lower lobes but also seen within the upper lobes particularly the left upper lobe most consistent with a tibial infiltrates. This is also seen within the right middle lobe. Well-defined suspicious stand alone nodule is not seen. Mild biapical pleural thickening and/or scar. Some scarring may again be present within the lower lung on the right and left. Pleural Space: No pleural effusion or thickening. No pneumothorax. Thoracic Inlet, Mediastinum, and Dina: Thyroid appears normal. Visualized esophagus has a normal appearance. There are lymph nodes which are prominent in the mediastinum and may be reactive. There is a 1.6 cm subcarinal lymph node and a 1.3 cm pretracheal and 1.5 cm. Tracheal lymph node as well as other smaller lymph nodes in the mediastinum and dina without well-defined mass. Heart, Vessels, and Pericardium: The main pulmonary artery is normal caliber. The thoracic aorta is not dilated. The ascending aorta is mildly prominent 4.5 cm. There is aortic valvular calcification and diffuse vascular calcifications of the great vessels and aorta without other aneurysm or evidence for intramural hemorrhage. There is calcification along the proximal SMA with a stent. The heart is prominent with mild pericardial fluid. Prominent coronary artery calcifications. Main pulmonary artery measures 3.3 cm. This can be seen in the setting of pulmonary arterial hypertension. Bones and Soft Tissues: Degenerative changes throughout the spine with osteopenia. No lytic or blastic lesion or fracture or dislocation is seen. Mild degenerative changes bilateral shoulders. Postoperative changes cervical spine appear intact as seen without complication or failure. There is height loss involving multiple vertebra including upper T3 and T4 and T5 and lower T10 and upper T12 as well as height loss at the L1 level. These are predominantly similar with the exception of the inferior T10 and the superior L1 and T12 levels which were not seen in 2017 but are of uncertain age. The soft tissues demonstrate nonenlarged lymph nodes in the axilla. There is no significant focal soft tissue finding. Upper Abdomen: Punctate nonobstructing intrarenal calculi are seen bilaterally with minimal perinephric fat stranding bilaterally. Spleen is upper limits of normal with splenic artery calcifications. Low attenuation of the liver likely fatty infiltration without significant or suspicious abnormal finding. Cholecystectomy without definite biliary abnormality. Mild fatty atrophy of the pancreas. Small hiatal hernia containing the upper fundus of the stomach without focal abnormal finding. Stool throughout the colon. No other acute process in the abdomen. IMPRESSION: 1. There is pneumonic infiltrate bilateral lungs with patchy opacities bilaterally most consistent with atypical pneumonia. Some scarring at the lung basis is suggested as well as groundglass opacities felt to represent earlier infiltrates. A well-defined mass or stand alone nodule is not seen. There are some underlying chronic changes otherwise. 2. Ascending aorta is prominent at 4.5 cm with vascular and coronary artery calcification without dissection suggested. Heart is prominent with mild pericardial fluid. 3. Likely reactive lymph nodes within the chest which are enlarged within the mediastinal region. 4. Small hiatal hernia without complication. 5. Fatty liver without abnormal finding. Cholecystectomy without abnormal finding. Minimal fatty atrophy of the pancreas. No acute process upper abdomen. 6. Bony degenerative change with osteopenia. Multilevel compression deformities some of which are similar when compared to the 2017 exam though a few are new or increased but of uncertain age as above. No displacement or other significant bony or soft tissue finding. Details, as above. All CT scans are performed using dose optimization techniques as appropriate to the performed exam and include at least one of the following: Automated exposure control, adjustment of the mA and/or kV according to size, and the use of iterative reconstruction technique.
[2025-02-12] MEDS: ZOSYN 4.5 GM 4.5 GM in SODIUM CHLORIDE 100ML 100 ML IV ONE (09:31)
--- NOTE | 2025-02-12 09:35 | CT ---
EXAM: CT SCAN ABDOMEN PELVIS WITHOUT CONTRAST HISTORY: Diarrhea with generalized abdominal pain COMPARISON: CT scan abdomen pelvis 08/24/2016 FINDINGS: Helically acquired axial images were obtained through the abdomen and pelvis without contrast utilizing 5-mm collimation. Sagittal and coronal reconstructions were imaged and reviewed. Evaluation is limited without intravenous contrast.. Heart is normal in size coronary ASVD. There is no pericardial effusion. There is bibasilar consolidation suggesting pneumonia. Ground-glass opacities are seen within the right middle lobe. There has been prior cholecystectomy. The liver, spleen and adrenal glands have normal unenhanced CT appearance. Pancreas is mildly atrophic. Small nonobstructive renal calculi noted bilaterally. There are several small hyperdense left-sided renal cysts.. There are simple right-sided renal cysts.. Dense atherosclerotic changes are seen involving the aorta without aneurysm. Mild stool retention is seen within the ascending, descending colon and rectum. . Mild diverticulosis without diverticulitis. There is gaseous distension of the sigmoid colon.. There are prominent air and fluid filled small bowel loops within the pelvis which may be related to ileus versus gastroenteritis. Prostate gland is enlarged. The bladder is unremarkable.. Bone windows reveals no lytic or blastic lesions. IMPRESSION: Coronary ASVD. Bilateral pneumonia. Follow-up to resolution is recommended. Prior cholecystectomy. Nonobstructive bilateral nephrolithiasis and bilateral renal cysts as described. Stool retention within the colon. Prominent small bowel within the pelvis which may be related to ileus versus gastroenteritis. Prostatic enlargement. All CT scans are performed using dose optimization techniques as appropriate to the performed exam and include at least one of the following: Automated exposure control, adjustment of the mA and/or kV according to size, and the use of iterative reconstruction technique.
[2025-02-12 10:02] LABS: MOLECULAR FLU A NEGATIVE BY NAAT (NEGATIVE); MOLECULAR FLU B NEGATIVE BY NAAT (NEGATIVE)
[2025-02-12] MEDS: LACTATED RINGERS 1,000 ML IV ONE (10:12)
[2025-02-12 10:15] LABS: SARS COV-2 RNA RAPID NAAT NEGATIVE (NEGATIVE)
[2025-02-12] MEDS: SOLU-MEDROL 125 MG IVP ONE (10:42)
[2025-02-12 12:01] VITALS: BMI 22.3
[2025-02-12] MEDS: ROCEPHIN 1 GM/50 ML D5W 1 GM/50 ML BAG IV SCH (12:55)
--- NOTE | 2025-02-12 13:14 | PCM ---
Date of Service Date Seen by Provider: 02/12/25 Time Seen by Provider: 12:00 Admit Day/Time Admission Date: 02/12/25 Admission Time: 10:15 Reason for Admission Chief Complaint: SEPSIS,BILATERAL PNUMONIA,ACUTE HYPOXIC RESP FAILU Hospital Provider Hospital Provider: BRAN LEOS, [facility] [place] Primary Care Physician Primary Care Physician: RAOUL HUBER History of Present Illness History of Present Illness: 79 yo male with pmh of asthma/COPD, sarcoidosis, CAD, CVA, and HTN presented to the ER for cough, weakness, sob, and diarrhea. States he has a chronic cough that is typically dry but occasionally produces yellow sputum. Has had productive cough last 2 days, had an episode of diarrhea this am, and fell attempting to get up off the toilet this am. Feels that his work of breathing is worse today. Typically wears 3.5L of O2 for sleep but does not require during the day. O2 sat was reported to be dropping into the 80s and was requiring up to 4L. He was found to have bilateral pneumonia and later developed a 100.7 temp. Blood cultures obtained. Given zosyn for sepsis coverage and a dose of steroids. Admitted to med/surg observation. Case Discussed With Case Discussed With: Patient's case was discussed with the ER Physicians, Dr. SINGLETARY Medical History Cervical spine fracture 3,4 and 5 then surgery on 6 and 7 S12.9XXA - Fracture of neck, unspecified, initial encounter (ICD-10) Stroke (2019) I63.9 - Cerebral infarction, unspecified (ICD-10) Muscle tightness M62.89 - Other specified disorders of muscle (ICD-10) Joint stiffness of spine M25.60 - Stiffness of unspecified joint, not elsewhere classified (ICD-10) Radicular pain M54.10 - Radiculopathy, site unspecified (ICD-10) Cervical pain M54.2 - Cervicalgia (ICD-10) Asthma for years J45.909 - Unspecified asthma, uncomplicated (ICD-10) Hypertension for years I10 - Essential (primary) hypertension (ICD-10) Anxiety F41.9 - Anxiety disorder, unspecified (ICD-10) Heart valve disease I38 - Endocarditis, valve unspecified (ICD-10) Laceration of finger S61.209A - UNSP OPEN WOUND OF UNSP FINGER W/O DAMAGE TO NAIL, INIT (ICD-10) Surgical History History of gastrointestinal surgery 2005 gall bladder Z98.890 - Other specified postprocedural states (ICD-10) History of ear, nose, and throat (ENT) surgery has done 3 surg sinus Z98.890 - Other specified postprocedural states (ICD-10) Social History Smoking and tobacco status: Never smoker Alcohol intake: never Substance use type: does not use Housing: house Highest education level completed: high school graduate Current occupational status: retired Leisure activites: games and other History of recent travel: No Seatbelt use: always Drives intoxicated or rides with intoxicated local driver: No Water heater temperature set < 120 degrees: Yes Working smoke detector in home: Yes Fire extinguisher in home: Yes Carbon monoxide detector in home: Yes Allergies Allergies Allergy/AdvReac Type Severity Reaction Status Date / Time alatrofloxacin mesylate Allergy Intermediate Anaphylaxis Verified 02/12/25 11:22 (From Trovan) trovafloxacin mesylate (From Allergy Intermediate Anaphylaxis Verified 02/12/25 11:22 Trovan) dexlansoprazole (From Allergy Mild REDNESS TO Verified 02/12/25 11:22 Dexilant) BODY, RASH niacin (From Niaspan Allergy Mild REDNESS TO Verified 02/12/25 11:22 Extended-Release) BODY, RASH lisinopril AdvReac Intermediate LIPS Verified 02/12/25 11:22 SWELLING Current Medications Home Medications Acetaminophen (Acetaminophen 325 Mg Tablet) 650 mg PO Q4H PRN PRN Reason: Mild Pain Hydrocodone Bitart/Acetaminophen (Hydrocodone Bit/Acetaminophen 5/325 Mg Tablet) 1 tab PO TID PRN PRN Reason: Pain Last Admin: 02/12/25 16:27 Dose: 1 tab Albuterol/Ipratropium (Ipratropium/Albuterol Vial.Neb) 3 ml NEB RTQ4H BOBBY Last Admin: 02/12/25 16:56 Dose: 3 ml Artificial Tears (Polyvinyl Alcohol 15 Ml Opth Tari) 1 drop EACHEYE TID [facility] Last Admin: 02/12/25 16:27 Dose: 1 drop Azelastine HCl (Azelastine Hcl 30 Ml Nasal [place]) 2 spray RUIZ 2XD [facility] Baclofen (Baclofen 10 Mg Tablet) 20 mg PO TID [facility] Last Admin: 02/12/25 16:27 Dose: 20 mg Budesonide/Formoterol Fumarate (Budesonide/Formoterol Fumarate 80/4.5 Mcg Hfa.Aer.Ad) 2 puff IH BID [facility] Cholecalciferol (Cholecalciferol (Vitamin D3) 1,000 Unit (25 Mcg) Tablet) 5,000 unit PO DAILY [facility] Clopidogrel Bisulfate (Clopidogrel Bisulfate 75 Mg Tablet) 75 mg PO DAILY [facility] Last Admin: 02/12/25 16:27 Dose: 75 mg Divalproex Sodium (Divalproex Sodium 250 Mg Tablet.Dr) 250 mg PO BID [facility] Doxycycline Hyclate (Doxycycline Hyclate 100 Mg Capsule) 100 mg PO Q12HR [facility] Stop: 02/17/25 09:01 Famotidine (Famotidine 20 Mg Tablet) 20 mg PO BID [facility] Gabapentin (Gabapentin 300 Mg Capsule) 300 mg PO TID [facility] Last Admin: 02/12/25 16:27 Dose: 300 mg CEFTRIAXONE/D5W 1 GM PREMIX (Rocephin 1 Gm/50 Ml D5w) 1 gm in 50 mls @ 100 mls/hr IV DAILY [facility] Stop: 02/15/25 11:59 Last Admin: 02/12/25 12:55 Dose: 100 mls/hr Methylprednisolone Sodium Succinate (Methylprednisolone Sod Succ/Pf 40 Mg/Ml Vial) 40 mg IVP Q8HR [facility] Last Admin: 02/12/25 17:53 Dose: 40 mg Metoprolol Succinate (Metoprolol Succinate 50 Mg Tab.Er.24h) 25 mg PO DAILY [facility] Non-Formulary Medication (Duloxetine) 20 mg PO DAILY [facility] Rosuvastatin Calcium (Rosuvastatin Calcium 10 Mg Tablet) 20 mg PO BEDTIME [facility] Tamsulosin HCl (Tamsulosin Hcl 0.4 Mg Cap.Er.24h) 0.4 mg PO QPM [facility] Last Admin: 02/12/25 16:27 Dose: 0.4 mg Tiotropium [place] (Tiotropium [place] 18 Mcg Cap.W.Dev) 1 cap IH DAILY [facility] Trazodone HCl (Trazodone Hcl 50 Mg Tablet) 50 mg PO BEDTIME PRN PRN Reason: Insomnia tiotropium bromide 18 mcg capsule with inhalation device (Spiriva with HandiHaler) 18 mcg inhalation DAILY 03/02/15 [History Confirmed 02/12/25] albuterol sulfate 90 mcg/actuation aerosol inhaler (Proventil HFA) 2 inh INH Q6H PRN SOB 08/24/16 [History Confirmed 02/12/25] metoprolol succinate 50 mg tablet,extended release 24 hr 25 mg PO DAILY 09/26/17 [History Confirmed 02/12/25] rosuvastatin 20 mg tablet (Crestor) 20 mg PO BEDTIME 07/17/18 [History Confirmed 02/12/25] baclofen 20 mg tablet 20 mg PO TID 02/11/20 [History Confirmed 02/12/25] budesonide-formoterol HFA 80 mcg-4.5 mcg/actuation aerosol inhaler (Symbicort) 2 puff inhalation DAILY 02/11/20 [History Confirmed 02/12/25] clopidogrel 75 mg tablet (Plavix) 75 mg PO QDAY 02/11/20 [History Confirmed 02/12/25] famotidine 20 mg tablet (Pepcid) 20 mg PO BID 02/11/20 [History Confirmed 02/12/25] gabapentin 300 mg capsule 300 mg PO TID 02/11/20 [History Confirmed 02/12/25] levocetirizine 5 mg tablet (Xyzal) 5 mg PO QPM 02/11/20 [History Confirmed 02/12/25] rimegepant 75 mg disintegrating tablet (Nurtec ODT) 75 mg PO DAILY PRN ANTI- MIGRAINE 02/11/20 [History Confirmed 02/12/25] tamsulosin 0.4 mg capsule (Flomax) 0.4 mg PO QDAY 02/11/20 [History Confirmed 02/12/25] carboxymethylcellulose sodium 0.5 % eye drops in a dropperette 1 drp BOTHEYES TID 05/03/21 [History Confirmed 02/12/25] cholecalciferol (vitamin D3) 125 mcg (5,000 unit) tablet (Vitamin D3) 125 mcg PO DAILY 05/03/21 [History Confirmed 02/12/25] denosumab 60 mg/mL subcutaneous syringe (Prolia) 60 mg subcut [id number] 05/03/21 [History Confirmed 02/12/25] teriparatide 20 mcg/dose (560 mcg/2.24 mL) subcutaneous pen injector (Forteo) 20 mcg subcut QMONTH 05/03/21 [History Confirmed 10/04/22] divalproex 250 mg tablet,delayed release 250 mg PO BID 04/05/22 [History Confirmed 02/12/25] azelastine 137 mcg (0.1 %) nasal spray 2 spray intranasal 2XD 02/12/25 [History Confirmed 02/12/25] betamethasone dipropionate 0.05 % topical cream 1 applic topical BID 02/12/25 [History Confirmed 02/12/25] duloxetine 20 mg capsule,delayed release 20 mg PO DAILY 02/12/25 [History Confirmed 02/12/25] hydrocodone 5 mg-acetaminophen 325 mg tablet 1 tab PO TID PRN pain 02/12/25 [History Confirmed 02/12/25] sodium polystyrene sulfonate 15 gram-sorbitol 20 gram/60 mL oral susp (SPS (with sorbitol)) 60 ml PO 2 TIMES PER WEEK 02/12/25 [History Confirmed 02/12/25] trazodone 50 mg tablet 50 mg PO BEDTIME PRN insomnia 02/12/25 [History Confirmed 02/12/25] Opioid Naive vs. Tolerant Does Patient Take Opioids?: Yes Is Patient Opioid Naive?: No What is Opioid Naive?: *Opioid Naive implies the patient is not already taking opioids or not chronically receiving opioids on a daily basis. *PRN dosing is not "usually" associated with tolerance. *Patients are at higher risk of over-sedation and aspiration. Is Patient Opioid Tolerant?: No What is Opioid Tolerant?: *Opioid Tolerance implies less than the expected response to an opioid. *Acquired tolerance is defined by the patient taking 60mg of oral morphine daily (or equianalgesic dose of another opioid) for 1 week or more. *Often associated with chronic pain. *May take more than usual dose to achieve desired pain control. Review of Systems Constitutional: Reports Weakness Head: Reports Normocephalic Eyes: Reports No symptoms Ears: Reports No symptoms Nose: Reports No symptoms Mouth: Reports No symptoms Throat: Reports No symptoms Cardiovascular: Reports No symptoms Respiratory: Reports Cough and Shortness of air Gastrointestinal: Reports Diarrhea Genitourinary: Reports No Symptoms Musculoskeletal: Reports No symptoms Endocrine: Reports No symptoms Hematology: Reports No symptoms Immunology: Reports No symptoms Neurological: Reports No symptoms Psychiatric: Reports No symptoms Physical examination Most Recent Vital Signs: Most Recent Vital Signs Temperature 98.7 F 02/12/25 11:45 Temperature Source Oral 02/12/25 11:45 Temperature Source Tympanic 02/12/25 11:17 Pulse Rate 89 02/12/25 11:45 Respiratory Rate 16 02/12/25 11:45 Blood Pressure 160/75 H 02/12/25 08:24 Blood Pressure Left Arm 123/75 02/12/25 11:45 Blood Pressure Position Supine 02/12/25 11:45 O2 Sat by Pulse Oximetry 93 L 02/12/25 11:45 Oxygen Delivery Method Nasal Cannula 02/12/25 11:45 Oxygen Flow Rate 3 02/12/25 11:45 Height 6 ft 1 in 02/12/25 11:45 Weight 76.7 kg 02/12/25 11:45 Telemetry Type Remote Telemetry 02/12/25 11:47 Telemetry Monitoring Started 02/12/25 11:47 Telemetry Heart Rate 88 02/12/25 11:47 Telemetry SPO2 91 L 02/12/25 11:47 EKG VA Interval 0.18 02/12/25 11:47 EKG QRS Interval 0.07 02/12/25 11:47 Telemetry Strip Reading INITIAL NSR 02/12/25 11:47 Appearance: Positive No Apparent Distress and Alert and Oriented x3 Skin: Positive Warm and Good Color HEENT: Positive Normocephalic and PERRLA Neck: Positive Supple and Midline Trachea Chest/Lungs: Positive Symmetrical With Equal Breath Sounds, Rhonci, Wheezes and Good Air Movement all 4 Lung Renee Heart: Positive RRR and Pulses Normal GI/: Positive Soft, Nontender, Bowel Sounds Normal and No Distention Musculoskeletal: Positive Not Examined Extremities: Positive Intact Peripheral Pulses, Stable Joints Without Laxity and Good ROM in All Joints; Negative Edema Neurological: Positive Sensation Intact, Motor intact, Reflexes Intact, Alert, Oriented and Other (generalized weakness) Labs This Visit Labs This Visit: Labs This Visit 02/12/25 02/12/25 08:35 09:37 WBC 6.90 RBC 3.66 L Hgb 11.4 L Hct 35.8 L MCV 97.8 H MCH 31.1 H MCHC 31.8 RDW Coeff of Melanie 12.9 Plt Count 153 Immature Gran % (Auto) 0.3 Neut % (Auto) 83.0 H Lymph % (Auto) 8.8 L Roberts % (Auto) 6.8 Eos % (Auto) 1.0 Baso % (Auto) 0.1 Neut # (Auto) 5.7 Lymph # (Auto) 0.6 Roberts # (Auto) 0.5 Eos # (Auto) 0.1 Baso # (Auto) 0.0 Immature Gran # (Auto) 0.0 Sodium 135.0 Potassium 4.64 Chloride 95.8 L Carbon Dioxide 30.6 H Anion Gap 13.24 BUN 13.7 Creatinine 1.21 H Estimated GFR (MDRD) 58.00 BUN/Creatinine Ratio 11.32 Glucose 104.4 Lactic Acid 1.69 Calcium 9.34 Magnesium 1.58 L Total Bilirubin 0.85 AST 35.5 ALT 22.7 Alkaline Phosphatase 74.6 Troponin I < 0.012 Total Protein 8.11 Albumin 3.97 Globulin 4.14 Albumin/Globulin Ratio 0.95 Procalcitonin < 0.05 Influ A Molecular Assay Negative by naat Influ B Molecular Assay Negative by naat SARS CoV-2 RNA Rapid NAHID Negative Microbiology This Visit 02/12/25 09:37 Throat Group A Strep Molecular Assay - Final Imaging Imaging: EXAM: CHEST CT WITHOUT CONTRAST HISTORY: Cough. Rule out pneumonia. TECHNIQUE: CT acquisition of the chest from the thoracic inlet to the upper abdomen without IV contrast administration. 2-D coronal and sagittal reformatted images were obtained from the axial source images. IV Contrast: None. CT Dose Reduction Techniques Performed: Yes. COMPARISON: Abdomen and pelvis CT of the same date. Chest CT 08/24/2016. FINDINGS: Lines, Tubes, Devices: None. Lung Parenchyma and Airways: Central airways are patent without endobronchial lesion. There may be some bronchial wall thickening particularly within the lower lobes bilaterally. Patchy airspace opacities are seen throughout the lungs greatest within the lower lobes but also seen within the upper lobes particularly the left upper lobe most consistent with a tibial infiltrates. This is also seen within the right middle lobe. Well-defined suspicious stand alone nodule is not seen. Mild biapical pleural thickening and/or scar. Some scarring may again be present within the lower lung on the right and left. Pleural Space: No pleural effusion or thickening. No pneumothorax. Thoracic Inlet, Mediastinum, and Dina: Thyroid appears normal. Visualized esophagus has a normal appearance. There are lymph nodes which are prominent in the mediastinum and may be reactive. There is a 1.6 cm subcarinal lymph node and a 1.3 cm pretracheal and 1.5 cm. Tracheal lymph node as well as other smaller lymph nodes in the mediastinum and dina without well-defined mass. Heart, Vessels, and Pericardium: The main pulmonary artery is normal caliber. The thoracic aorta is not dilated. The ascending aorta is mildly prominent 4.5 cm. There is aortic valvular calcification and diffuse vascular calcifications of the great vessels and aorta without other aneurysm or evidence for intramural hemorrhage. There is calcification along the proximal SMA with a stent. The heart is prominent with mild pericardial fluid. Prominent coronary artery calcifications. Main pulmonary artery measures 3.3 cm. This can be seen in the setting of pulmonary arterial hypertension. Bones and Soft Tissues: Degenerative changes throughout the spine with osteopenia. No lytic or blastic lesion or fracture or dislocation is seen. Mild degenerative changes bilateral shoulders. Postoperative changes cervical spine appear intact as seen without complication or failure. There is height loss involving multiple vertebra including upper T3 and T4 and T5 and lower T10 and upper T12 as well as height loss at the L1 level. These are predominantly similar with the exception of the inferior T10 and the superior L1 and T12 levels which were not seen in 2017 but are of uncertain age. The soft tissues demonstrate nonenlarged lymph nodes in the axilla. There is no significant focal soft tissue finding. Upper Abdomen: Punctate nonobstructing intrarenal calculi are seen bilaterally with minimal perinephric fat stranding bilaterally. Spleen is upper limits of normal with splenic artery calcifications. Low attenuation of the liver likely fatty infiltration without significant or suspicious abnormal finding. Cholecystectomy without definite biliary abnormality. Mild fatty atrophy of the pancreas. Small hiatal hernia containing the upper fundus of the stomach without focal abnormal finding. Stool throughout the colon. No other acute process in the abdomen. IMPRESSION: 1. There is pneumonic infiltrate bilateral lungs with patchy opacities bilaterally most consistent with atypical pneumonia. Some scarring at the lung basis is suggested as well as groundglass opacities felt to represent earlier infiltrates. A well-defined mass or stand alone nodule is not seen. There are some underlying chronic changes otherwise. 2. Ascending aorta is prominent at 4.5 cm with vascular and coronary artery calcification without dissection suggested. Heart is prominent with mild pericardial fluid. 3. Likely reactive lymph nodes within the chest which are enlarged within the mediastinal region. 4. Small hiatal hernia without complication. 5. Fatty liver without abnormal finding. Cholecystectomy without abnormal finding. Minimal fatty atrophy of the pancreas. No acute process upper abdomen. 6. Bony degenerative change with osteopenia. Multilevel compression deformities some of which are similar when compared to the 2017 exam though a few are new or increased but of uncertain age as above. No displacement or other significant bony or soft tissue finding. Details, as above. EXAM: CT SCAN ABDOMEN PELVIS WITHOUT CONTRAST FINDINGS: Helically acquired axial images were obtained through the abdomen and pelvis without contrast utilizing 5-mm collimation. Sagittal and coronal reconstructions were imaged and reviewed. Evaluation is limited without intravenous contrast.. Heart is normal in size coronary ASVD. There is no pericardial effusion. There is bibasilar consolidation suggesting pneumonia. Ground-glass opacities are seen within the right middle lobe. There has been prior cholecystectomy. The liver, spleen and adrenal glands have normal une nhanced CT appearance. Pancreas is mildly atrophic. Small nonobstructive renal calculi noted bilaterally. There are several small hyperdense left-sided renal cysts.. There are simple right-sided renal cysts.. Dense atherosclerotic changes are seen involving the aorta without aneurysm. Mild stool retention is seen within the ascending, descending colon and rectum. . Mild diverticulosis without diverticulitis. There is gaseous distension of the sigmoid colon.. There are prominent air and fluid filled small bowel loops within the pelvis which may be related to ileus versus gastroenteritis. Prostate gland is enlarged. The bladder is unremarkable.. Bone windows reveals no lytic or blastic lesions. IMPRESSION: Coronary ASVD. Bilateral pneumonia. Follow-up to resolution is recommended. Prior cholecystectomy. Nonobstructive bilateral nephrolithiasis and bilateral renal cysts as described. Stool retention within the colon. Prominent small bowel within the pelvis which may be related to ileus versus gastroenteritis. Prostatic enlargement. Review Statement Review Statement: I have independently reviewed and interpreted the labs/EKGs/imaging that were ordered by the ER provider. I have reviewed all outside records that are available currently in our EMR including imaging/notes/labs from previous visits. Plan Plan: 1. Acute Hypoxic Respiratory Failure in the setting of bilateral pneumonia - wean to baseline oxygen requirements as tolerated, nebs, steroids 2. Community acquired pneumonia, bilateral - rocephin and doxy, steroids, nebs, mrsa, strep pneumo, legionella, and sputum ordered 3. Asthma/COPD - no formal diagnosis per patient, follows with pulmonology, continue home inhalers 4. HTN - chronic, continue home medications 5. Chronic pain - continue home medications DVT Prophylaxis: Plavix Time Spent: Greater than 80 minutes spent with patient, 50% of the time spent with this patient was devoted to counseling and coordination of care. [facility] minutes spent discussing advance care planning. Disposition: Admit to: Med/Surg Inpatient Discussed Plan of Care with Dr. East. Medications Medication Orders: Medications Ordered Category Date Time Status Acetaminophen [Tylenol] Meds 02/12/25 11:55 Active 650 mg PO Q4H PRN Ceftriaxone/D5w 1 gm Premix [Rocephin 1 gm/50 ml D5w] Meds 02/12/25 12:00 Active 1 gm in 50 ml IV DAILY Doxycycline Hyclate [Doxycycline] Meds 02/12/25 21:00 Active 100 mg PO Q12HR Ipratropium/Albuterol Neb [Duoneb] Meds 02/12/25 14:00 Active 3 ml NEB RTQ4H Methylprednisolone Sod Succ/Pf [Solu-Medrol 40 mg] Meds 02/12/25 18:00 Active 40 mg IVP Q8HR
[2025-02-12] MEDS: DUONEB NEB SCH (14:12)
[2025-02-12] MEDS: NORCO 5-325 PO PRN (16:27)
[2025-02-12] MEDS: ARTIFICIAL TEARS OPTH SOL EACHEYE SCH (16:27)
[2025-02-12] MEDS: FLOMAX PO SCH ×2 (16:27→16:28)
[2025-02-12] MEDS: NEURONTIN PO SCH (16:27)
[2025-02-12] MEDS: BACLOFEN PO SCH (16:27)
[2025-02-12] MEDS: PLAVIX PO SCH (16:27)
[2025-02-12] MEDS: TOPROL XL PO ONE (17:50)
[2025-02-12] MEDS: SOLU-MEDROL 40 MG IVP SCH (17:53)
[2025-02-12] MEDS: PEPCID PO SCH (20:48)
[2025-02-12] MEDS: DEPAKOTE PO SCH (20:48)
[2025-02-12] MEDS: DOXYCYCLINE PO SCH (20:48)
[2025-02-12] MEDS: CRESTOR PO SCH (20:48)
[2025-02-12] MEDS: SYMBICORT 80-4.5 MCG INHALER IH SCH (20:49)
[2025-02-12] MEDS: ASTELIN 0.1% NAS SCH (20:49)
[2025-02-12] MEDS ORDERED: CYMBALTA PO SCH (21:00)
[2025-02-13 05:40] LABS: IMMATURE GRANULOCYTE # (AUTO) 0.0 (0.0-1.0); IMMATURE GRANULOCYTE % (AUTO) 0.3 % (0.0-5.0); RDW COEFFICIENT OF VARIATION 12.7 % (11.6-14.8)
[2025-02-13 05:56] LABS: CREATININE 1.01 mg/dL (0.60-1.10)
[2025-02-13] MEDS: VITAMIN D PO SCH (09:23)
[2025-02-13] MEDS: TOPROL XL PO SCH (09:24)
[2025-02-13] MEDS: SPIRIVA IH SCH (09:43)
--- NOTE | 2025-02-13 11:46 | PCM.PROG ---
Date/Time Seen Date Seen by Provider: 02/13/25 Time Seen by Provider: 09:10 Provider [facility]RICE LI[facility] Chief Complaint Chief Complaint: SEPSIS,BILATERAL PNUMONIA,ACUTE HYPOXIC RESP FAILU Subjective Subjective: Patient resting in bed on exam today well. Patients hes feeling well today. No SOB at rest. denies chest or abdominal pain. Patient reports he ambulated to the bathroom today and feels some improvement. Patient eating and drinking well. Patient and concerned for returing home. would like patient to do more rehab prior to returning home. reports the patient falls quite frequently and shes unable to help him when he falls and unable to get the patient off the ground. concerned for patient falling and sustaining a severe injury. Objective Appearance: Positive Well-appearing, Well-nourished, No Apparent Distress, Alert and Oriented x3 and Thin; Negative Ill-Appearing Chest/Lungs: Positive Symmetrical With Equal Breath Sounds and Rales Heart: Positive RRR and Pulses Normal; Negative Rub, Murmur, Irregular Rhythm, Tachycardia, Bracycardia, Abnormal Pulses, Gallop, No S3 Auscultated or No S4 Auscultated GI/: Positive Soft, Bowel Sounds Normal, No Distention and No Organomegaly; Negative Tender, Mass, Bowel Sounds Hypoactive, Bowel Sounds Hyperactive, Hepatomegaly, Splenomegaly, Guarding, Hernias, Rebound Tenderness or Abdominal Aorta Not Palpable Musculoskeletal: Positive Other (gait not assessed); Negative Misalignment or Asymmetry Neurological: Positive Sensation Intact, Motor intact, Cranial Nerves Intact, Alert, Oriented and Muscle Strength 5/5 in Upper and Lower Extremities Bilaterally; Negative Disorinted, Abnormal Reflexes, Focal Deficit or CN Palsy Vital Signs Vital Signs: Vital Signs: Last 24 Hours 02/12/25 11:45 02/12/25 11:45 02/12/25 11:47 Temperature 98.7 F Temperature Source Oral Pulse Rate 89 Respiratory Rate 16 Blood Pressure Blood Pressure Mean Blood Pressure Left Arm 123/75 Blood Pressure Location Blood Pressure Position Supine O2 Sat by Pulse Oximetry 93 L Oxygen Delivery Method Nasal Cannula Nasal Cannula Oxygen Flow Rate 3 3 Height 6 ft 1 in Weight 76.7 kg Telemetry Type Remote Telemetry Telemetry Monitoring Started Telemetry Heart Rate 88 Telemetry SPO2 91 L EKG ND Interval 0.18 EKG QRS Interval 0.07 Telemetry Strip Reading INITIAL NSR 02/12/25 13:00 02/12/25 14:00 02/12/25 17:43 Temperature 97.5 F L Temperature Source Temporal Artery Scan Pulse Rate 79 Respiratory Rate 16 Blood Pressure 124/77 Blood Pressure Mean 92 Blood Pressure Left Arm Blood Pressure Location Left Arm Blood Pressure Position Supine O2 Sat by Pulse Oximetry 93 L 94 L Oxygen Delivery Method Nasal Cannula Nasal Cannula Oxygen Flow Rate 3 3 Height Weight Telemetry Type Remote Telemetry Telemetry Monitoring Continues Telemetry Heart Rate 84 Telemetry SPO2 94 EKG ND Interval 0.17 EKG QRS Interval 0.08 Telemetry Strip Reading NSR 02/12/25 19:00 02/12/25 19:30 02/12/25 20:00 Temperature Temperature Source Pulse Rate Respiratory Rate 20 Blood Pressure Blood Pressure Mean Blood Pressure Left Arm Blood Pressure Location Blood Pressure Position O2 Sat by Pulse Oximetry 94 L Oxygen Delivery Method Nasal Cannula Nasal Cannula Oxygen Flow Rate 3 3 Height Weight Telemetry Type Remote Telemetry Telemetry Monitoring Continues Telemetry Heart Rate 76 Telemetry SPO2 93 EKG ND Interval 0.19 EKG QRS Interval 0.06 Telemetry Strip Reading SR 02/12/25 20:52 02/13/25 01:00 02/13/25 04:57 Temperature 97 F L 97.5 F L Temperature Source Temporal Artery Scan Pulse Rate 67 63 Respiratory Rate 16 18 Blood Pressure 119/59 L 112/71 Blood Pressure Mean 79 84 Blood Pressure Left Arm Blood Pressure Location Left Arm Left Arm Blood Pressure Position Supine Supine O2 Sat by Pulse Oximetry 96 95 Oxygen Delivery Method Nasal Cannula Nasal Cannula Oxygen Flow Rate 3 3 Height Weight Telemetry Type Remote Telemetry Telemetry Monitoring Continues Telemetry Heart Rate 60 Telemetry SPO2 95 EKG ND Interval 0.17 EKG QRS Interval 0.09 Telemetry Strip Reading SR 02/13/25 05:26 02/13/25 07:00 02/13/25 09:59 Temperature Temperature Source Pulse Rate Respiratory Rate Blood Pressure Blood Pressure Mean Blood Pressure Left Arm Blood Pressure Location Blood Pressure Position O2 Sat by Pulse Oximetry 96 94 L Oxygen Delivery Method Nasal Cannula Room Air Oxygen Flow Rate 3 Height Weight Telemetry Type Remote Telemetry Telemetry Monitoring Continues Telemetry Heart Rate 67 Telemetry SPO2 96 EKG ND Interval 0.19 EKG QRS Interval 0.09 Telemetry Strip Reading NSR Lab Results Lab Results: Lab Results: Last 24 Hours 02/13/25 05:04 WBC 10.03 RBC 3.12 L Hgb 9.8 L Hct 30.5 L MCV 97.8 H MCH 31.4 H MCHC 32.1 RDW Coeff of Melanie 12.7 Plt Count 123 L Immature Gran % (Auto) 0.3 Neut % (Auto) 89.2 H Lymph % (Auto) 8.2 L [place] % (Auto) 2.2 Eos % (Auto) 0.0 Baso % (Auto) 0.1 Neut # (Auto) 9.0 H Lymph # (Auto) 0.8 [place] # (Auto) 0.2 L Eos # (Auto) 0.0 Baso # (Auto) 0.0 Immature Gran # (Auto) 0.0 Sodium 134.9 Potassium 4.21 Chloride 96.6 L Carbon Dioxide 28.6 Anion Gap 13.91 BUN 21.2 H Creatinine 1.01 Estimated GFR (MDRD) 71.00 BUN/Creatinine Ratio 20.99 Glucose 143.2 H Calcium 8.86 Total Bilirubin 0.31 AST 29.7 ALT 21.0 Alkaline Phosphatase 56.8 Total Protein 7.04 Albumin 3.49 L Globulin 3.55 Albumin/Globulin Ratio 0.98 Additional Comments Additional Comments: I have independently reviewed and interpreted the labs/EKGs/imaging ordered during this hospital stay. I have reviewed outside records that are available in our EMR that pertain to medical stay including imaging/notes/labs from previous visits. Active Medications Active Medications: Medications Generic Name Dose Route Start Last Admin Trade Name Freq PRN Reason Stop Dose Admin Acetaminophen 650 mg 02/12/25 11:55 Acetaminophen 325 Mg Tablet PO Q4H PRN Mild Pain Hydrocodone Bitart/Acetaminophen 1 tab 02/12/25 14:52 02/13/25 11:38 Hydrocodone Bit/Acetaminophen 5/325 Mg Tablet PO 1 tab TID PRN Administration Pain Albuterol/Ipratropium 3 ml 02/12/25 14:00 02/13/25 09:57 Ipratropium/Albuterol Vial.Neb NEB 3 ml RTQ4H BOBBY Administration Artificial Tears 1 drop 02/12/25 16:00 02/13/25 09:22 Polyvinyl Alcohol 15 Ml Opth Tari EACHEYE 1 drop TID BOBBY Administration Azelastine HCl 2 spray 02/12/25 21:00 02/13/25 09:22 Azelastine Hcl 30 Ml Nasal [place] RUIZ 2 spray 2XD BOBBY Administration Baclofen 20 mg 02/12/25 15:00 02/13/25 09:24 Baclofen 10 Mg Tablet PO 20 mg TID BOBBY Administration Budesonide/Formoterol Fumarate 2 puff 02/12/25 21:00 02/13/25 09:22 Budesonide/Formoterol Fumarate 80/4.5 Mcg Hfa.Aer.Ad IH 2 puff BID BOBBY Administration Cholecalciferol 5,000 unit 02/13/25 09:00 02/13/25 09:23 Cholecalciferol (Vitamin D3) 1,000 Unit (25 Mcg) Tablet PO 5,000 unit DAILY BOBBY Administration Clopidogrel Bisulfate 75 mg 02/12/25 15:00 02/13/25 09:24 Clopidogrel Bisulfate 75 Mg Tablet PO 75 mg DAILY BOBBY Administration Divalproex Sodium 250 mg 02/12/25 21:00 02/13/25 09:24 Divalproex Sodium 250 Mg Tablet.Dr PO 250 mg BID BOBBY Administration Doxycycline Hyclate 100 mg 02/12/25 21:00 02/13/25 09:24 Doxycycline Hyclate 100 Mg Capsule PO 02/17/25 09:01 100 mg Q12HR BOBBY Administration Famotidine 20 mg 02/12/25 21:00 02/13/25 09:23 Famotidine 20 Mg Tablet PO 20 mg BID BOBBY Administration Gabapentin 300 mg 02/12/25 15:00 02/13/25 09:23 Gabapentin 300 Mg Capsule PO 300 mg TID BOBBY Administration CEFTRIAXONE/D5W 1 GM PREMIX 1 gm in 50 mls @ 100 mls/hr 02/12/25 12:00 02/13/25 09:27 Rocephin 1 Gm/50 Ml D5w IV 02/15/25 11:59 100 mls/hr DAILY BOBBY Administration Methylprednisolone Sodium Succinate 40 mg 02/12/25 18:00 02/13/25 04:14 Methylprednisolone Sod Succ/Pf 40 Mg/Ml Vial IVP 40 mg Q8HR BOBBY Administration Metoprolol Succinate 25 mg 02/13/25 09:00 02/13/25 09:24 Metoprolol Succinate 50 Mg Tab.Er.24h PO 25 mg DAILY BOBBY Administration Non-Formulary Medication 20 mg 02/13/25 09:00 Duloxetine PO DAILY [facility] Rosuvastatin Calcium 20 mg 02/12/25 21:00 02/12/25 20:48 Rosuvastatin Calcium 10 Mg Tablet PO 20 mg BEDTIME BOBBY Administration Tamsulosin HCl 0.4 mg 02/12/25 17:00 02/12/25 16:27 Tamsulosin Hcl 0.4 Mg Cap.Er.24h PO 0.4 mg QPM BOBBY Administration Tiotropium [place] 1 cap 02/13/25 09:00 02/13/25 09:43 Tiotropium [place] 18 Mcg Cap.W.Dev IH 1 cap DAILY BOBBY Administration Trazodone HCl 50 mg 02/12/25 14:44 Trazodone Hcl 50 Mg Tablet PO BEDTIME PRN Insomnia Plan Plan: 1. Acute Hypoxic Respiratory Failure in the setting of bilateral pneumonia: -Patient on room air today at rest maintaining adequate o2 saturation. -continue nebs, steroids 2. Community acquired pneumonia, bilateral: -Continue Rocephin and doxy, steroids, nebs -mrsa, strep pneumo, legionella, and sputum pending 3. Asthma/COPD: -no formal diagnosis per patient. -follows with pulmonology -continue home inhalers 4. Essential hypertension: -chronic, continue home medications 5. Chronic pain: -continue home medications DVT Prophylaxis: Plavix Time Spent: Greater than 80 minutes spent with patient, 50% of the time spent with this patient was devoted to counseling and coordination of care. Advanced Care Plannin minutes spent discussing advance care planning. Disposition: Patient will be assessed by therapy for potential swingbed placement. Admit to: Med/Surg Inpatient Discussed Plan of Care with Dr. East. Review Statement Review Statement: I have personally discussed and reviewed the patient's visit/currently labs/imaging/decision making with Dr. East, my supervising attending. Greater that 50 minutes spent with patient, 50% of the time spent with this patient was devoted to counseling and coordination of care.
--- NOTE | 2025-02-13 12:45 | RS.PTINEVL ---
Subjective Patient information Date of Evaluation: 02/13/25 Date of Arrival on Unit: 02/12/25 Admitted From:: Home Diagnosis: sepsis, pneumonia Usual Living Arrangement: With Spouse Living Arrangement Comments: lives with in 2 story home with basement Home Environment: House, Stairs (few) (no steps to enter basement, to enter main floor 3 steps w HR. pt states he stays in basement and has bathroom and bedroom down there. ) and Rail Medical History: Hypertension, CVA/TIA, COPD and Arthritis Medical History Comments:: sarcoidosis, cervical spine fx, anxiety, heart valve disease, CAD LATEX ALLERGY?: No Surgical History: Cervical Spine Medications: see chart Subjective Information/ Patient Comments:: pt states that he fell at home, not sure what happened. Prior to this fall, last fall was approx 1 year ago. pt states he is feeling better. 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 pt stays in his "man cave" in the basement and has a bathroom and bedroom down there. pt reports that he can enter basement with no steps. Current Level of Function: Partially Dependent Current Equipment Used at Home: oxygen, shower chair, walk in tub, walker, 2 canes Pain Assessement Location Neck: Description: Tightness and Aching Effects of Pain: pain since cervical fx > 50 years ago Interventions Objective Patient Orientation: Person, Place, Time and Situation Current Interventions: IV's and Telemetry Observation: wears O2 at night. 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) Right Lower Extremity: Mild Weakness (hip flex 4/5, knee flex/ext 4+/5, ankle DF/PF 4+/5 ) Left Lower Extremity: Mild Weakness (hip flex 4/5, knee flex/ext 4+/5, ankle DF/PF 4+/5 ) Sensation Sensation Right Upper Extremity: Intact/Normal Left Upper Extremity: Intact/Normal Right Lower Extremity: Impaired Left Lower Extremity: Impaired Comments: n/t and burning B feet due to neuropathy Palpation Palpation Findings: None/Normal Balance Sitting Balance and Reactions Static Sitting Balance: Good Dynamic Sitting Balance: Good Standing Balance and Reactions Static Standing Balance: Fair Dynamic Standing Balance: Fair (fair-) Comments Balance Assessment Comments: tinetti score 21/28 consistent with mod risk of falls Functional Mobility Bed Mobility Rolling R/L: Independent Scooting: Independent Supine to Sit: Independent Sit to Supine: Independent Transfers Sit to Stand: Supervision and CGA Stand to Sit: Supervision and CGA Stand Pivot Transfers: Supervision and CGA Safety Awareness Safety Awareness: Good CIERA INDEX SCORE: n/a Ambulation Ambulation Assistive Device Used: Straight Cane Orthotic/Prosthetic Device: No Distance: 110ft Assistance needed with Ambulation: Supervision and CGA Gait Deviations: Forward posture and Short stride Ambulation Comments: pt amb without AD with slight increased lat sway, with cane pt amb with improved posture and decreased lat sway Factors Affecting Ambulation: Decreased Balance, Weakness, Decreased Coordination, Decreased Safety and Limited Endurance Treatment time Units charged Gait trainin Time with patient Length of Evaluation: 19 Total treatment time: 31 Patient Education Education Patient Education: Activity Modification and Education of Plan of Care Teaching Recipient: Patient Teaching Methods: Discussion Comments: discussion regarding POC Assessment Assessment Problem List:: Decreased level of function, Requires training/education, Decreased safety/Risk of falls and Weakness Rehab Potential: Good Further Therapy Indicated?: Yes Candidate for Swing Bed for Therapy Services?: Feel pt may not be a candidate for swing bed due to high functional level. Feel pt would benefit from outpatient PT for strengthening. Evaluation Complexity: HISTORY: Medium, EXAM OF BODY SYSTEMS: Medium, CLINICAL PRESENTATION: Medium and CLINICAL DECISION MAKING: Medium Patient's Goal(s): get stronger and go home. Short Term Goals GOAL #1: pt transfer sit to/from stand independently. Goal to be met by: 02/16/25 GOAL #2: pt amb 140ft with AAD with improved step length and no deviation from path. Goal to be met by: 02/16/25 GOAL #3: Improve BLE strength 4+/5 Goal to be met by: 02/16/25 GOAL #4: Improve tinetti score Goal to be met by: 02/17/25 Intermediate Goals GOAL #1: pt amb functional household distances w AAD independently. Goal to be met by: 02/18/25 GOAL #2: pt ascend/descend 3 steps with CGA x1 Goal to be met by: 02/18/25 GOAL #3: Improve tinetti score Goal to be met by: 02/18/25 Plan Plan of Care: Therapeutic EX and Therapeutic Activity Other:: gait training Frequency of Treatment: 1-2 X day, as tolerated Duration of Treatment: 5 days Anticipated Discharge Destination: undetermined Treatment Diagnosis (ICD 10 Codes): impaired balance R26.81 gait difficulty R26.2 weakness M62.81 Has the Physician been added for Co-signature?: Yes
[2025-02-13] MEDS: DULOXETINE 20 MG PO SCH (16:30)
[2025-02-14 05:23] LABS: IMMATURE GRANULOCYTE # (AUTO) 0.1 (0.0-1.0); IMMATURE GRANULOCYTE % (AUTO) 0.5 % (0.0-5.0); RDW COEFFICIENT OF VARIATION 12.5 % (11.6-14.8)
[2025-02-14 05:37] LABS: CREATININE 0.87 mg/dL (0.60-1.10)
[2025-02-14] MEDS: DULOXETINE 20 MG PO SCH (09:32)
[2025-02-14] MEDS: SODIUM CHLORIDE 1,000 ML IV SCH (09:41)
--- NOTE | 2025-02-14 12:34 | PCM.PROG ---
Date/Time Seen Date Seen by Provider: 02/14/25 Time Seen by Provider: 08:45 Provider Provider: JUAN TOUSSAINT, [facility] Chief Complaint Chief Complaint: SEPSIS,BILATERAL PNUMONIA,ACUTE HYPOXIC RESP FAILU Subjective Subjective: Patient examined sitting up in bed with his present. Patient states he is breathing much better. Has been afebrile. Is not requiring oxygen. Patient states when he is discharged, that he would like to come to [facility] for outpatient PT/OT/ST services. He specifically asks about ST due to intermittent dysphagia that he has been struggling with for quite some time. Objective Appearance: Positive Well-appearing Chest/Lungs: Positive Symmetrical With Equal Breath Sounds, Clear to Auscultation Bilaterally and Good Air Movement all 4 Lung Renee Heart: Positive RRR and Pulses Normal GI/: Positive Soft, Nontender and Bowel Sounds Normal Musculoskeletal: Positive Not Examined Neurological: Positive Sensation Intact, Motor intact, Alert and Oriented Vital Signs Vital Signs: Vital Signs: Last 24 Hours 02/13/25 13:00 02/13/25 13:38 02/13/25 14:00 Temperature 97.7 F Temperature Source Temporal Artery Scan Pulse Rate 80 Respiratory Rate 16 Blood Pressure 127/74 Blood Pressure Mean 91 Blood Pressure Location Left Arm Blood Pressure Position Supine O2 Sat by Pulse Oximetry 97 96 Oxygen Delivery Method Room Air Room Air Oxygen Flow Rate Telemetry Type Remote Telemetry Telemetry Monitoring Continues Telemetry Heart Rate 81 Telemetry SPO2 99 EKG CO Interval 0.22 H EKG QRS Interval 0.09 EKG QT Interval Telemetry Strip Reading SR with 1st Degree AVB 02/13/25 19:00 02/13/25 20:00 02/13/25 20:00 Temperature Temperature Source Pulse Rate Respiratory Rate Blood Pressure Blood Pressure Mean Blood Pressure Location Blood Pressure Position O2 Sat by Pulse Oximetry Oxygen Delivery Method Room Air Nasal Cannula Oxygen Flow Rate 3 Telemetry Type Remote Telemetry Telemetry Monitoring Continues Telemetry Heart Rate 84 Telemetry SPO2 99 EKG CO Interval EKG QRS Interval 0.14 H EKG QT Interval 0.38 Telemetry Strip Reading SR 02/13/25 21:49 02/14/25 01:00 02/14/25 05:01 Temperature 97.8 F 97.6 F Temperature Source Temporal Artery Scan Pulse Rate 82 83 Respiratory Rate 18 14 Blood Pressure 136/81 127/75 Blood Pressure Mean 99 92 Blood Pressure Location Left Arm Left Arm Blood Pressure Position Sitting Supine O2 Sat by Pulse Oximetry 96 97 Oxygen Delivery Method Room Air Nebulizer Treatment Oxygen Flow Rate Telemetry Type Remote Telemetry Telemetry Monitoring Continues Telemetry Heart Rate 76 Telemetry SPO2 94 EKG CO Interval 0.19 EKG QRS Interval 0.11 H EKG QT Interval 0.37 Telemetry Strip Reading SR 02/14/25 07:00 02/14/25 10:00 Temperature Temperature Source Pulse Rate Respiratory Rate Blood Pressure Blood Pressure Mean Blood Pressure Location Blood Pressure Position O2 Sat by Pulse Oximetry 98 Oxygen Delivery Method Room Air Oxygen Flow Rate Telemetry Type Remote Telemetry Telemetry Monitoring Continues Telemetry Heart Rate 76 Telemetry SPO2 94 EKG CO Interval 0.18 EKG QRS Interval 0.10 EKG QT Interval Telemetry Strip Reading SR Lab Results Lab Results: Lab Results: Last 24 Hours 02/14/25 04:30 WBC 10.93 H RBC 2.81 L Hgb 8.8 L Hct 26.6 L MCV 94.7 H MCH 31.3 H MCHC 33.1 RDW Coeff of Melanie 12.5 Plt Count 141 Immature Gran % (Auto) 0.5 Neut % (Auto) 89.8 H Lymph % (Auto) 6.9 L [place] % (Auto) 2.8 Eos % (Auto) 0.0 Baso % (Auto) 0.0 Neut # (Auto) 9.8 H Lymph # (Auto) 0.8 [place] # (Auto) 0.3 L Eos # (Auto) 0.0 Baso # (Auto) 0.0 Immature Gran # (Auto) 0.1 Sodium 129.5 L Potassium 3.94 Chloride 95.5 L Carbon Dioxide 28.0 Anion Gap 9.94 BUN 27.3 H Creatinine 0.87 Estimated GFR (MDRD) 85.00 BUN/Creatinine Ratio 31.37 Glucose 146.0 H Calcium 9.07 Magnesium 1.66 Total Bilirubin 0.24 AST 43.7 ALT 28.3 Alkaline Phosphatase 49.8 L Total Protein 6.44 Albumin 3.07 L Globulin 3.37 Albumin/Globulin Ratio 0.91 Additional Comments Additional Comments: I have independently reviewed and interpreted the labs/EKGs/imaging ordered during this hospital stay. I have reviewed outside records that are available in our EMR that pertain to medical stay including imaging/notes/labs from previous visits. Active Medications Active Medications: Medications Generic Name Dose Route Start Last Admin Trade Name Freq PRN Reason Stop Dose Admin Acetaminophen 650 mg 02/12/25 11:55 Acetaminophen 325 Mg Tablet PO Q4H PRN Mild Pain Hydrocodone Bitart/Acetaminophen 1 tab 02/12/25 14:52 02/14/25 12:31 Hydrocodone Bit/Acetaminophen 5/325 Mg Tablet PO 1 tab TID PRN Administration Pain Albuterol/Ipratropium 3 ml 02/12/25 14:00 02/14/25 10:12 Ipratropium/Albuterol Vial.Neb NEB 3 ml RTQ4H BOBBY Administration Artificial Tears 1 drop 02/12/25 16:00 02/14/25 09:33 Polyvinyl Alcohol 15 Ml Opth [place]ari EACHEYE 1 drop TID BOBBY Administration Azelastine HCl 2 spray 02/12/25 21:00 02/14/25 09:32 Azelastine Hcl 30 Ml Nasal [place] RUIZ 2 spray 2XD BOBBY Administration Baclofen 20 mg 02/12/25 15:00 02/14/25 09:49 Baclofen 10 Mg Tablet PO 20 mg TID BOBBY Administration Budesonide/Formoterol Fumarate 2 puff 02/12/25 21:00 02/14/25 09:35 Budesonide/Formoterol Fumarate 80/4.5 Mcg Hfa.Aer.Ad IH 2 puff BID BOBBY Administration Cholecalciferol 5,000 unit 02/13/25 09:00 02/14/25 09:46 Cholecalciferol (Vitamin D3) 1,000 Unit (25 Mcg) Tablet PO 5,000 unit DAILY BOBBY Administration Clopidogrel Bisulfate 75 mg 02/12/25 15:00 02/14/25 09:49 Clopidogrel Bisulfate 75 Mg Tablet PO 75 mg DAILY BOBBY Administration Divalproex Sodium 250 mg 02/12/25 21:00 02/14/25 09:47 Divalproex Sodium 250 Mg Tablet.Dr PO 250 mg BID BOBBY Administration Doxycycline Hyclate 100 mg 02/12/25 21:00 02/14/25 09:46 Doxycycline Hyclate 100 Mg Capsule PO 02/17/25 09:01 100 mg Q12HR BOBBY Administration Famotidine 20 mg 02/12/25 21:00 02/14/25 09:47 Famotidine 20 Mg Tablet PO 20 mg BID BOBBY Administration Gabapentin 300 mg 02/12/25 15:00 02/14/25 09:46 Gabapentin 300 Mg Capsule PO 300 mg TID BOBBY Administration CEFTRIAXONE/D5W 1 GM PREMIX 1 gm in 50 mls @ 100 mls/hr 02/12/25 12:00 02/14/25 09:38 Rocephin 1 Gm/50 Ml D5w IV 02/15/25 11:59 100 mls/hr DAILY BOBBY Administration Sodium Chloride 1,000 mls @ 75 mls/hr 02/14/25 09:00 02/14/25 09:41 Sodium Chloride IV 75 mls/hr .[id number] BOBBY Administration Methylprednisolone Sodium Succinate 40 mg 02/12/25 18:00 02/14/25 12:31 Methylprednisolone Sod Succ/Pf 40 Mg/Ml Vial IVP 40 mg Q8HR BOBBY Administration Metoprolol Succinate 25 mg 02/13/25 09:00 02/14/25 09:49 Metoprolol Succinate 50 Mg Tab.Er.24h PO 25 mg DAILY BOBBY Administration Non-Formulary Medication 20 mg 02/14/25 09:00 02/14/25 09:32 Duloxetine PO 20 mg DAILY BOBBY Administration Rosuvastatin Calcium 20 mg 02/12/25 21:00 02/13/25 21:10 Rosuvastatin Calcium 10 Mg Tablet PO 20 mg BEDTIME BOBBY Administration Tamsulosin HCl 0.4 mg 02/12/25 17:00 02/13/25 16:30 Tamsulosin Hcl 0.4 Mg Cap.Er.24h PO 0.4 mg QPM BOBBY Administration Tiotropium [place] 1 cap 02/13/25 09:00 02/14/25 09:35 Tiotropium [place] 18 Mcg Cap.W.Dev IH 1 cap DAILY BOBBY Administration Trazodone HCl 50 mg 02/12/25 14:44 Trazodone Hcl 50 Mg Tablet PO BEDTIME PRN Insomnia Plan Plan: 1. Acute Hypoxic Respiratory Failure in the setting of bilateral pneumonia - O2 PRN, nebs, steroids 2. Community acquired pneumonia, bilateral - rocephin and doxy, steroids, nebs, mrsa, strep pneumo, legionella, and sputum ordered 3. Asthma/COPD - no formal diagnosis per patient, follows with pulmonology, continue home inhalers 4. HTN - chronic, continue home medications 5. Chronic pain - continue home medications 6. Hyponatremia- dropped from 134.9 to 129.5, checking urine osm and urine sodium, NS at 75mL/hr ordered, repeat Na at 1600, patient reports he has long hx of low sodium and has been told to use extra salt by his doctor. He has never been admitted with hyponatremia or required salt tabs Review Statement Review Statement: I have personally discussed and reviewed the patient's visit/currently labs/imaging/decision making with Dr. East, my supervising attending. Greater that 50 minutes spent with patient, 50% of the time spent with this patient was devoted to counseling and coordination of care.
[2025-02-14 16:05] LABS: CREATININE 1.01 mg/dL (0.60-1.10)
[2025-02-14] MEDS: DESYREL PO PRN (21:49)
[2025-02-15 05:15] LABS: IMMATURE GRANULOCYTE # (AUTO) 0.1 (0.0-1.0); IMMATURE GRANULOCYTE % (AUTO) 0.8 % (0.0-5.0); RDW COEFFICIENT OF VARIATION 12.5 % (11.6-14.8)
[2025-02-15 05:39] LABS: CREATININE 0.84 mg/dL (0.60-1.10)
[2025-02-15] MEDS: SODIUM CHLORIDE PO SCH (09:27)
[2025-02-15] MEDS: TYLENOL PO PRN (10:03)
[2025-02-15 13:49] LABS: CREATININE 0.83 mg/dL (0.60-1.10)
--- NOTE | 2025-02-15 14:09 | PCM.PROG ---
Date/Time Seen Date Seen by Provider: 02/15/25 Time Seen by Provider: 09:10 Provider Provider: AMRIT ANDERSON PA-C, [facility] Chief Complaint Chief Complaint: SEPSIS,BILATERAL PNUMONIA,ACUTE HYPOXIC RESP FAILU Subjective Subjective: Patient states he feels "great". He is ready to go home. However sodium continues to trend downwards. Patient states he's had low sodium in the past. Reviewing records it's been 131-135 in past year. Objective Appearance: Positive Well-appearing Chest/Lungs: Positive Symmetrical With Equal Breath Sounds, Clear to Auscultation Bilaterally and Good Air Movement all 4 Lung Renee Heart: Positive RRR and Pulses Normal GI/: Positive Soft, Nontender and Bowel Sounds Normal Musculoskeletal: Positive Not Examined Neurological: Positive Sensation Intact, Motor intact, Alert and Oriented Vital Signs Vital Signs: Vital Signs: Last 24 Hours 02/14/25 17:02 02/14/25 19:00 02/14/25 20:00 Temperature Temperature Source Pulse Rate Respiratory Rate Blood Pressure Blood Pressure Mean Blood Pressure Location Blood Pressure Position O2 Sat by Pulse Oximetry Oxygen Delivery Method Nasal Cannula Oxygen Flow Rate 3 Height 6 ft 1 in Weight 76.7 kg Telemetry Type Remote Telemetry Telemetry Monitoring Continues Telemetry Heart Rate 75 Telemetry SPO2 [address] Interval 0.18 EKG QRS Interval 0.08 Telemetry Strip Reading sr 02/14/25 20:00 02/14/25 21:35 02/15/25 01:00 Temperature 97.3 F L Temperature Source Temporal Artery Scan Pulse Rate 69 Respiratory Rate 18 Blood Pressure 113/80 Blood Pressure Mean 91 Blood Pressure Location Left Arm Blood Pressure Position Supine O2 Sat by Pulse Oximetry 95 Oxygen Delivery Method Room Air Room Air Oxygen Flow Rate Height Weight Telemetry Type Remote Telemetry Telemetry Monitoring Continues Telemetry Heart Rate Telemetry SPO2 [address] Interval 0.18 EKG QRS Interval 0.12 H Telemetry Strip Reading SR/BBB 02/15/25 05:05 02/15/25 05:18 02/15/25 08:00 Temperature 97.2 F L Temperature Source Temporal Artery Scan Pulse Rate 75 Respiratory Rate 18 Blood Pressure 128/73 Blood Pressure Mean 91 Blood Pressure Location Left Arm Blood Pressure Position Supine O2 Sat by Pulse Oximetry 96 Oxygen Delivery Method Nasal Cannula Room Air Nasal Cannula Oxygen Flow Rate 3 3 Height Weight Telemetry Type Telemetry Monitoring Telemetry Heart Rate Telemetry SPO2 EKG CT Interval EKG QRS Interval Telemetry Strip Reading 02/15/25 10:00 Temperature Temperature Source Pulse Rate Respiratory Rate Blood Pressure Blood Pressure Mean Blood Pressure Location Blood Pressure Position O2 Sat by Pulse Oximetry 96 Oxygen Delivery Method Room Air Oxygen Flow Rate Height Weight Telemetry Type Telemetry Monitoring Telemetry Heart Rate Telemetry SPO2 EKG CT Interval EKG QRS Interval Telemetry Strip Reading Lab Results Lab Results: Lab Results: Last 24 Hours 02/15/25 02/15/25 02/14/25 13:35 04:54 15:49 WBC 7.42 RBC 3.03 L Hgb 9.5 L Hct 28.4 L MCV 93.7 MCH 31.4 H MCHC 33.5 RDW Coeff of Melanie 12.5 Plt Count 164 Immature Gran % (Auto) 0.8 Neut % (Auto) 85.6 H Lymph % (Auto) 10.9 [place] % (Auto) 2.7 Eos % (Auto) 0.0 Baso % (Auto) 0.0 Neut # (Auto) 6.4 Lymph # (Auto) 0.8 [place] # (Auto) 0.2 L Eos # (Auto) 0.0 Baso # (Auto) 0.0 Immature Gran # (Auto) 0.1 Sodium 127.0 L 127.4 L 128.4 L Potassium 4.12 4.08 4.20 Chloride 93.3 L 93.2 L 92.9 L Carbon Dioxide 25.1 25.2 26.4 Anion Gap 12.72 13.08 13.30 BUN 24.1 H 23.8 H 28.9 H Creatinine 0.83 0.84 1.01 Estimated GFR (MDRD) 90.00 88.00 71.00 BUN/Creatinine Ratio 29.03 28.33 28.61 Glucose 156.4 H 151.8 H 123.4 H Calcium 8.86 9.06 8.98 Magnesium 1.65 Total Bilirubin 0.27 AST 67.1 H ALT 55.3 H Alkaline Phosphatase 52.1 L Total Protein 6.76 Albumin 3.28 L Globulin 3.48 Albumin/Globulin Ratio 0.94 Additional Comments Additional Comments: I have independently reviewed and interpreted the labs/EKGs/imaging ordered during this hospital stay. I have reviewed outside records that are available in our EMR that pertain to medical stay including imaging/notes/labs from previous visits. Active Medications Active Medications: Medications Generic Name Dose Route Start Last Admin Trade Name Freq PRN Reason Stop Dose Admin Acetaminophen 650 mg 02/12/25 11:55 02/15/25 10:03 Acetaminophen 325 Mg Tablet PO 650 mg Q4H PRN Administration Mild Pain Hydrocodone Bitart/Acetaminophen 1 tab 02/12/25 14:52 02/15/25 11:41 Hydrocodone Bit/Acetaminophen 5/325 Mg Tablet PO 1 tab TID PRN Administration Pain Albuterol/Ipratropium 3 ml 02/12/25 14:00 02/15/25 10:13 Ipratropium/Albuterol Vial.Neb NEB 3 ml RTQ4H BOBBY Administration Artificial Tears 1 drop 02/12/25 16:00 02/15/25 08:54 Polyvinyl Alcohol 15 Ml Opth Tari EACHEYE 1 drop TID BOBBY Administration Azelastine HCl 2 spray 02/12/25 21:00 02/15/25 08:54 Azelastine Hcl 30 Ml Nasal [place] RUIZ 2 spray 2XD BOBBY Administration Baclofen 20 mg 02/12/25 15:00 02/15/25 08:53 Baclofen 10 Mg Tablet PO 20 mg TID BOBBY Administration Budesonide/Formoterol Fumarate 2 puff 02/12/25 21:00 02/15/25 09:05 Budesonide/Formoterol Fumarate 80/4.5 Mcg Hfa.Aer.Ad IH 2 puff BID BOBBY Administration Cholecalciferol 5,000 unit 02/13/25 09:00 02/15/25 08:52 Cholecalciferol (Vitamin D3) 1,000 Unit (25 Mcg) Tablet PO 5,000 unit DAILY BOBBY Administration Clopidogrel Bisulfate 75 mg 02/12/25 15:00 02/15/25 08:53 Clopidogrel Bisulfate 75 Mg Tablet PO 75 mg DAILY BOBBY Administration Divalproex Sodium 250 mg 02/12/25 21:00 02/15/25 08:53 Divalproex Sodium 250 Mg Tablet.Dr PO 250 mg BID BOBBY Administration Doxycycline Hyclate 100 mg 02/12/25 21:00 02/15/25 08:53 Doxycycline Hyclate 100 Mg Capsule PO 02/17/25 09:01 100 mg Q12HR BOBBY Administration Famotidine 20 mg 02/12/25 21:00 02/15/25 08:53 Famotidine 20 Mg Tablet PO 20 mg BID BOBBY Administration Gabapentin 300 mg 02/12/25 15:00 02/15/25 08:53 Gabapentin 300 Mg Capsule PO 300 mg TID BOBBY Administration Methylprednisolone Sodium Succinate 40 mg 02/12/25 18:00 02/15/25 12:09 Methylprednisolone Sod Succ/Pf 40 Mg/Ml Vial IVP 40 mg Q8HR BOBBY Administration Metoprolol Succinate 25 mg 02/13/25 09:00 02/15/25 08:53 Metoprolol Succinate 50 Mg Tab.Er.24h PO 25 mg DAILY BOBBY Administration Non-Formulary Medication 20 mg 02/14/25 09:00 02/15/25 08:54 Duloxetine PO 20 mg DAILY BOBBY Administration Rosuvastatin Calcium 20 mg 02/12/25 21:00 02/14/25 21:42 Rosuvastatin Calcium 10 Mg Tablet PO 20 mg BEDTIME BOBBY Administration Sodium Chloride 1 gm 02/15/25 09:00 02/15/25 12:03 Sodium Chloride 1 Gm Tablet PO 1 gm QID BOBBY Administration Tamsulosin HCl 0.4 mg 02/12/25 17:00 02/14/25 17:37 Tamsulosin Hcl 0.4 Mg Cap.Er.24h PO 0.4 mg QPM BOBBY Administration Tiotropium [place] 1 cap 02/13/25 09:00 02/15/25 09:05 Tiotropium [place] 18 Mcg Cap.W.Dev IH 1 cap DAILY BOBBY Administration Trazodone HCl 50 mg 02/12/25 14:44 02/14/25 21:49 Trazodone Hcl 50 Mg Tablet PO 50 mg BEDTIME PRN Administration Insomnia Plan Plan: 1. Acute Hypoxic Respiratory Failure in the setting of bilateral pneumonia - resolved, O2 PRN, nebs, stop steroids 2. Community acquired pneumonia, bilateral - rocephin and doxy, stop steroids, nebs, mrsa, strep pneumo, legionella, and sputum ordered 3. Asthma/COPD - no formal diagnosis per patient, follows with pulmonology, continue home inhalers 4. HTN - chronic, continue home medications 5. Chronic pain - continue home medications 6. Hyponatremia- worsened, urine osm and urine sodium ordered yesterday but hasn't been collected, worsened with NS, stop fluids. Start salt tabs, fluid restrict. 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 Dispo: discharge delayed due to worsening hyponatremia Review Statement Review Statement: I have personally discussed and reviewed the patient's visit/currently labs/imaging/decision making with Dr. East, my supervising attending. Greater that 50 minutes spent with patient, 50% of the time spent with this patient was devoted to counseling and coordination of care.
[2025-02-16 05:48] VITALS: BP 144/87; PULSE 82; RESP 16; TEMP 97.3
[2025-02-16 05:48] LABS: IMMATURE GRANULOCYTE # (AUTO) 0.1 (0.0-1.0); IMMATURE GRANULOCYTE % (AUTO) 0.7 % (0.0-5.0); RDW COEFFICIENT OF VARIATION 12.7 % (11.6-14.8)
[2025-02-16 06:00] LABS: CREATININE 0.79 mg/dL (0.60-1.10)
--- NOTE | 2025-02-16 08:18 | RS.OTINEVL ---
Subjective Patient information Date of Evaluation: 02/13/25 Date of Arrival on Unit: 02/12/25 Admitted From:: Home Diagnosis: Pneumonia, Sepsis PRECAUTIONS: Has had several falls, Usual Living Arrangement: With Spouse Living Arrangement Comments: Pt lives with his in a split level house with 8 stairs up and 8 stairs down. Home Environment: House Medical History: Hypertension, CVA/TIA and Arthritis Medical History Comments:: orthostatic hypotension Surgical History: Cervical Spine (c) Surgical History Comments:: knee surgery, Medications: Refer to chart Subjective Information/ Patient Comments:: "I can stay in my man cave. I don't have steps to get in it. 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 Current Level of Function: Partially Dependent Comments: Pt using a straight cane to ambulate safely. Current Equipment Used at Home: oxygen, shower chair, walk in tub, walker, 2 canes Pain Assessment Pain Pain Location Body Site: Neck (Has had 2 neck surgeries due to fractured neck in 1967.) Pain Alleviating Factors: Medication and Position Change Interventions Objective Patient Orientation: Person, Place, Time and Situation Current Interventions: Telemetry Observation: Pt is Independent with getting to sit EOB. Pt is CGA for sit to stand from EOB. Pt using a cane to help with balance. Interventions ROM Right Upper Extremity AROM: WFL's Left Upper Extremity AROM: WFL's Strength Right Upper Extremity: Mild Weakness Left Upper Extremity: Mild Weakness Comments:: Pt has winging of the Left scapula. Sensation Right Upper Extremity: Intact/Normal Left Upper Extremity: Intact/Normal Balance Sitting Balance Static Sitting Balance: Good Dynamic Sitting Balance: Good Standing Balance Static Standing Balance: Fair Dynamic Standing Balance: Fair Comments Balance Assessment Comments: Pt has difficulty feeling his feet. ADL Skills Self Feeding Self Feeding: Independent Grooming Grooming: CGA Grooming Set-up: Standing Bathing Bathing UE: Independent Bathing LE: CGA Bathing Set-up: Shower Dressing Dressing UE: Independent Dressing LE: Independent Toilet Management Toilet Hygiene: Independent Comments Comments:: RUE 4+/5. 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 Functional Mobility Bed Mobility Rolling R/L: Independent Scooting: Independent Supine to Sit: Independent Sit to Supine: Independent Transfers Sit to Stand: CGA Stand to Sit: CGA Stand Pivot Transfers: CGA Ambulation Weight Bearing Status: FWB Assistive Device Used: Straight Cane Assistance needed with Ambulation: CGA Safety Awareness Safety Awareness: Good CIERA INDEX SCORE: . Additional Treatment Performed Time with patient Length of Evaluation: 16 Total treatment time: 32 Activities Would you be interested in leaving your room for activities?: Yes Would you enjoy group activities?: Yes Do you have difficulty with your vision?: Yes Patient Interests:: Watching Television, Puzzles/Games and Visiting/Socializing Patient Education Patient Education: Education of diagnosis, Home Exercise Program and Education of Plan of Care Teaching Recipient: Patient Teaching Methods: Discussion and Demonstration Assessment Problem List:: Decreased level of function, Requires training/education, Decreased safety/Risk of falls and Weakness Rehab Potential: Good Further Therapy Indicated?: Yes Evaluation Complexity: HISTORY: Medium, EXAM OF BODY SYSTEMS: Medium and CLINICAL DECISION MAKING: Medium Patient's Goal(s): To be able to go home and take care of himself. Short Term Goals Goals GOAL 1: LUE strength to increase to 4+/5. Goal to be met by: 02/16/25 GOAL 2: Pt to increase grooming standing at the sink to SUP. Goal to be met by: 02/16/25 GOAL 3: Pt to increase dyn. std. bal. to Fair. Goal to be met by: 02/16/25 [facility] Goals GOAL 1: Pt to be (I) with all ADLS. Goal to be met by: 02/17/25 GOAL 2: Pt to increase LUE strength to 5/5. Goal to be met by: 02/17/25 GOAL 3: Pt to increase dyn. std. bal. to G-. Goal to be met by: 02/17/25 Plan Plan of Care: Therapeutic EX, Neuromuscular Re-Educ, Therapeutic Activity and Self-Care/Home Management Frequency of Treatment: 1-2 X day, as tolerated Duration of Treatment: 4-5 days Anticipated Discharge Destination: Home (Pt would be a great candidate for outpatient PT.) Treatment Diagnosis (ICD 10 Codes): M62.81 Weakness, Impaired bal. R26.81, Z74.1 Need for assistance for personal care. Has the Physician been added for Co-signature?: Yes
[2025-02-16] MEDS: ROCEPHIN 1 GM/50 ML D5W 1 GM/50 ML BAG IV SCH (09:02)
--- NOTE | 2025-02-16 09:35 | DCSUM ---
Admission Date Admission Date: 02/12/25 Discharge Date Discharge Date: 02/16/25 Admission Diagnosis Admission Diagnosis: 1. Acute Hypoxic Respiratory Failure in the setting of bilateral pneumonia 2. Community acquired pneumonia, bilateral Discharge Diagnosis Discharge Diagnosis: 1. Acute Hypoxic Respiratory Failure in the setting of bilateral pneumonia - resolved 2. Community acquired pneumonia, bilateral - 3. Asthma/COPD 4. HTN 5. Chronic pain 6. Hyponatremia Hospital Provider Hospital Provider: AMRIT ANDERSON PA-C, [facility] Primary Care Physician Primary Care Physician: RAOUL HUBER Summary of History and Physical Summary of History and Physical: 79 yo male with pmh of asthma/COPD, sarcoidosis, CAD, CVA, and HTN presented to the ER for cough, weakness, sob, and diarrhea. States he has a chronic cough that is typically dry but occasionally produces yellow sputum. Has had productive cough last 2 days, had an episode of diarrhea this am, and fell attempting to get up off the toilet this am. Feels that his work of breathing is worse today. Typically wears 3.5L of O2 for sleep but does not require during the day. O2 sat was reported to be dropping into the 80s and was requiring up to 4L. He was found to have bilateral pneumonia and later developed a 100.7 temp. Blood cultures obtained. Given zosyn for sepsis coverage and a dose of steroids. Admitted to med/surg observation. Hospital Course Subjective: Patient was treated with abx/steroids. On his baseline O2 requirement. By 02/15 he felt great and was hoping to go home. However his sodium was trending down. 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 He was placed on a fluid restriction and started on sodium tabs. It is mildly improved today. He is asymptomatic and wishing to go home. Will continue with sodium tabs x1 week. Recommended repeat labs next week. Patient agrees to plan of care. Will send in remainder of abx as well. F/u with pcp. Appearance: Pleasant, No Apparent Distress and Alert HEENT: MMM CVS: Other (RRR) Abdomen: Soft, Non-Tender and No Distention Respiratory: No Accessory Muscle Use Extremities: No Edema Vital Signs: Most Recent Vital Signs Temperature 97.3 F L 02/16/25 05:47 Temperature Source Tympanic 02/16/25 05:47 Temperature Source Tympanic 02/12/25 11:17 Pulse Rate 82 02/16/25 05:47 Respiratory Rate 16 02/16/25 05:47 Blood Pressure 144/87 H 02/16/25 05:47 Blood Pressure Mean 106 02/16/25 05:47 Blood Pressure Left Arm 123/75 02/12/25 11:45 Blood Pressure Location Left Arm 02/16/25 05:47 Blood Pressure Position Supine 02/16/25 05:47 O2 Sat by Pulse Oximetry 96 02/16/25 05:47 Oxygen Delivery Method Room Air 02/16/25 08:00 Oxygen Flow Rate 2 02/16/25 05:47 Height 6 ft 1 in 02/14/25 17:02 Weight 76.7 kg 02/14/25 17:02 Telemetry Type Remote Telemetry 02/16/25 07:00 Telemetry Monitoring Continues 02/16/25 07:00 Telemetry Heart Rate 80 02/16/25 07:00 Telemetry SPO2 95 02/16/25 07:00 EKG CO Interval 0.16 02/16/25 07:00 EKG QRS Interval 0.10 02/16/25 07:00 EKG QT Interval 0.37 02/14/25 01:00 Telemetry Strip Reading SR 02/16/25 07:00 Imaging: EXAM: CHEST CT WITHOUT CONTRAST HISTORY: Cough. Rule out pneumonia. TECHNIQUE: CT acquisition of the chest from the thoracic inlet to the upper abdomen without IV contrast administration. 2-D coronal and sagittal reformatted images were obtained from the axial source images. IV Contrast: None. CT Dose Reduction Techniques Performed: Yes. COMPARISON: Abdomen and pelvis CT of the same date. Chest CT 08/24/2016. FINDINGS: Lines, Tubes, Devices: None. Lung Parenchyma and Airways: Central airways are patent without endobronchial lesion. There may be some bronchial wall thickening particularly within the low er lobes bilaterally. Patchy airspace opacities are seen throughout the lungs greatest within the lower lobes but also seen within the upper lobes particularly the left upper lobe most consistent with a tibial infiltrates. This is also seen within the right middle lobe. Well-defined suspicious stand alone nodule is not seen. Mild biapical pleural thickening and/or scar. Some scarring may again be present within the lower lung on the right and left. Pleural Space: No pleural effusion or thickening. No pneumothorax. Thoracic Inlet, Mediastinum, and Dina: Thyroid appears normal. Visualized esop hagus has a normal appearance. There are lymph nodes which are prominent in the mediastinum and may be reactive. There is a 1.6 cm subcarinal lymph node and a 1.3 cm pretracheal and 1.5 cm. Tracheal lymph node as well as other smaller lymph nodes in the mediastinum and dina without well-defined mass. Heart, Vessels, and Pericardium: The main pulmonary artery is normal caliber. The thoracic aorta is not dilated. The ascending aorta is mildly prominent 4.5 cm. There is aortic valvular calcification and diffuse vascular calcifications of the great vessels and aorta without other aneurysm or evidence for intramural hemorrhage. There is calcification along the proximal SMA with a stent. The heart is prominent with mild pericardial fluid. Prominent coronary artery calcifications. Main pulmonary artery measures 3.3 cm. This can be seen in the setting of pulmonary arterial hypertension. Bones and Soft Tissues: Degenerative changes throughout the spine with osteopenia. No lytic or blastic lesion or fracture or dislocation is seen. Mild degenerative changes bilateral shoulders. Postoperative changes cervical spine appear intact as seen without complication or failure. There is height loss involving multiple vertebra including upper T3 and T4 and T5 and lower T10 and upper T12 as well as height loss at the L1 level. These are predominantly similar with the exception of the inferior T10 and the superior L1 and T12 levels which were not seen in 2017 but are of uncertain age. The soft tissues demonstrate nonenlarged lymph nodes in the axilla. There is no significant focal soft tissue finding. Upper Abdomen: Punctate nonobstructing intrarenal calculi are seen bilaterally with minimal perinephric fat stranding bilaterally. Spleen is upper limits of normal with splenic artery calcifications. Low attenuation of the liver likely fatty infiltration without significant or suspicious abnormal finding. Cholecystectomy without definite biliary abnormality. Mild fatty atrophy of the pancreas. Small hiatal hernia containing the upper fundus of the stomach without focal abnormal finding. Stool throughout the colon. No other acute process in the abdomen. IMPRESSION: 1. There is pneumonic infiltrate bilateral lungs with patchy opacities bilaterally most consistent with atypical pneumonia. Some scarring at the lung basis is suggested as well as groundglass opacities felt to represent earlier infiltrates. A well-defined mass or stand alone nodule is not seen. There are some underlying chronic changes otherwise. 2. Ascending aorta is prominent at 4.5 cm with vascular and coronary artery calcification without dissection suggested. Heart is prominent with mild pericardial fluid. 3. Likely reactive lymph nodes within the chest which are enlarged within the mediastinal region. 4. Small hiatal hernia without complication. 5. Fatty liver without abnormal finding. Cholecystectomy without abnormal finding. Minimal fatty atrophy of the pancreas. No acute process upper abdomen. 6. Bony degenerative change with osteopenia. Multilevel compression deformities some of which are similar when compared to the 2017 exam though a few are new or increased but of uncertain age as above. No displacement or other significant bony or soft tissue finding. Details, as above. EXAM: CT SCAN ABDOMEN PELVIS WITHOUT CONTRAST FINDINGS: Helically acquired axial images were obtained through the abdomen and pelvis without contrast utilizing 5-mm collimation. Sagittal and coronal reconstructions were imaged and reviewed. Evaluation is limited without intravenous contrast.. Heart is normal in size coronary ASVD. There is no pericardial effusion. There is bibasilar consolidation suggesting pneumonia. Ground-glass opacities are seen within the right middle lobe. There has been prior cholecystectomy. The liver, spleen and adrenal glands have normal unenhanced CT appearance. Pancreas is mildly atrophic. Small nonobstructive renal calculi noted bilaterally. There are several small hyperdense left-sided renal cysts.. There are simple right-sided renal cysts.. Dense atherosclerotic changes are seen involving the aorta without aneurysm. Mild stool retention is seen within the ascending, descending colon and rectum. . Mild diverticulosis without diverticulitis. There is gaseous distension of the sigmoid colon.. There are prominent air and fluid filled small bowel loops within the pelvis which may be related to ileus versus gastroenteritis. Prostate gland is enlarged. The bladder is unremarkable.. Bone windows reveals no lytic or blastic lesions. IMPRESSION: Coronary ASVD. Bilateral pneumonia. Follow-up to resolution is recommended. Prior cholecystectomy. Nonobstructive bilateral nephrolithiasis and bilateral renal cysts as described. Stool retention within the colon. Prominent small bowel within the pelvis which may be related to ileus versus gastroenteritis. Prostatic enlargement. Lab Results Last 24 Hours: 02/16/25 02/15/25 05:40 13:35 WBC 7.03 RBC 3.13 L Hgb 9.7 L Hct 29.3 L MCV 93.6 MCH 31.0 MCHC 33.1 RDW Coeff of Melanie 12.7 Plt Count 180 Immature Gran % (Auto) 0.7 Neut % (Auto) 82.4 H Lymph % (Auto) 11.8 Gila % (Auto) 5.1 Eos % (Auto) 0.0 Baso % (Auto) 0.0 Neut # (Auto) 5.8 Lymph # (Auto) 0.8 Gila # (Auto) 0.4 Eos # (Auto) 0.0 Baso # (Auto) 0.0 Immature Gran # (Auto) 0.1 Sodium 128.5 L 127.0 L Potassium 4.04 4.12 Chloride 94.7 L 93.3 L Carbon Dioxide 26.6 25.1 Anion Gap 11.24 12.72 BUN 22.7 H 24.1 H Creatinine 0.79 0.83 Estimated GFR (MDRD) 95.00 90.00 BUN/Creatinine Ratio 28.73 29.03 Glucose 140.0 H 156.4 H Calcium 8.73 8.86 Total Bilirubin 0.26 AST 57.3 ALT 68.0 H Alkaline Phosphatase 52.0 L Total Protein 6.48 Albumin 3.21 L Globulin 3.27 Albumin/Globulin Ratio 0.98 Discharge Instructions Discharge Planning: Discharge Planning > [address] Che East. Discharge Medications: Medications at Discharge (Home Meds & RX) tiotropium bromide 18 mcg capsule with inhalation device (Spiriva with HandiHaler) 18 mcg inhalation DAILY 03/02/15 albuterol sulfate 90 mcg/actuation aerosol inhaler (Proventil HFA) 2 inh INH Q6H PRN SOB 08/24/16 metoprolol succinate 50 mg tablet,extended release 24 hr 25 mg PO DAILY 09/26/17 rosuvastatin 20 mg tablet (Crestor) 20 mg PO BEDTIME 07/17/18 baclofen 20 mg tablet 20 mg PO TID 02/11/20 budesonide-formoterol HFA 80 mcg-4.5 mcg/actuation aerosol inhaler (Symbicort) 2 puff inhalation DAILY 02/11/20 clopidogrel 75 mg tablet (Plavix) 75 mg PO QDAY 02/11/20 famotidine 20 mg tablet (Pepcid) 20 mg PO BID 02/11/20 gabapentin 300 mg capsule 300 mg PO TID 02/11/20 levocetirizine 5 mg tablet (Xyzal) 5 mg PO QPM 02/11/20 rimegepant 75 mg disintegrating tablet (Nurtec ODT) 75 mg PO DAILY PRN ANTI- MIGRAINE 02/11/20 tamsulosin 0.4 mg capsule (Flomax) 0.4 mg PO QDAY 02/11/20 carboxymethylcellulose sodium 0.5 % eye drops in a dropperette 1 drp BOTHEYES TID 05/03/21 cholecalciferol (vitamin D3) 125 mcg (5,000 unit) tablet (Vitamin D3) 125 mcg PO DAILY 05/03/21 denosumab 60 mg/mL subcutaneous syringe (Prolia) 60 mg subcut [id number] 05/03/21 teriparatide 20 mcg/dose (560 mcg/2.24 mL) subcutaneous pen injector (Forteo) 20 mcg subcut QMONTH 05/03/21 divalproex 250 mg tablet,delayed release 250 mg PO BID 04/05/22 azelastine 137 mcg (0.1 %) nasal spray 2 spray intranasal 2XD 02/12/25 betamethasone dipropionate 0.05 % topical cream 1 applic topical BID 02/12/25 duloxetine 20 mg capsule,delayed release 20 mg PO DAILY 02/12/25 hydrocodone 5 mg-acetaminophen 325 mg tablet 1 tab PO TID PRN pain 02/12/25 sodium polystyrene sulfonate 15 gram-sorbitol 20 gram/60 mL oral susp (SPS (with sorbitol)) 60 ml PO 2 TIMES PER WEEK 02/12/25 trazodone 50 mg tablet 50 mg PO BEDTIME PRN insomnia 02/12/25 doxycycline hyclate 100 mg capsule 100 mg PO Q12HR #2 caps 02/16/25 sodium chloride 1,000 mg soluble tablet 1,000 mg PO QID 7 days #28 tabs 02/16/25 Discharge Plan Discharge Discharge Orders: Discharge Patient (ONCE); Ordered 02/16/25 Ordered By: AMRIT ANDERSON Activity Restrictions/Additional Instructions: DISCHARGE TO HOME DX: PNEUMONIA, HYPONATREMIA PLEASE REPEAT YOUR LABS NEXT WEEK TO RECHECK [facility]: [facility] S[facility] TABS ORDERED You have been referred to Outpatient therapy at [facility]. They will be in contact with you to initiate care. If you have any questions or need to speak with them, their contact number is [phone]. Care Plan Goals: Problem: Impaired Respiratory Status Goal: Exhibit optimal respiratory function Instructions: Activities as tolerated Elevate head of bed Notify MD of increased congestion Problem: Risk for falls Goal: No falls or injury Instructions: Have no throw rugs on the floor Make sure pathway is clear of all objects Use assistance devices if applicable Problem: Infection Goal #1: No signs/symptoms of infection Instructions: Monitor for sign/symptoms of infection Monitor temperature Goal #2: White blood cell counts Within Normal Limits Instructions: Obtain labs per physician orders Patient Disposition: HOME SELF-CARE Prescriptions: New doxycycline hyclate 100 mg Capsule 100 mg PO Q12HR Qty: 2 0RF sodium chloride 1,000 mg Tablet,Soluble 1,000 mg PO QID 7 Days Qty: 28 0RF Continued tiotropium bromide [Spiriva with HandiHaler] 18 MCG capsule, w/inhalation device 18 mcg inhalation DAILY metoprolol succinate 50 MG tablet extended release 24 hr 25 mg PO DAILY rosuvastatin [Crestor] 20 MG tablet 20 mg PO BEDTIME carboxymethylcellulose sodium 0.5 % Dropperette 1 drp BOTHEYES TID Forteo 20 mcg/dose (600mcg/2.4mL) Pen Injector 20 mcg SUBCUT QMONTH cholecalciferol (vitamin D3) [Vitamin D3] 125 mcg (5,000 unit) Tablet 125 mcg PO DAILY Patient Comments: WILL STOP 5 DAYS BEFORE COLONOSCOPY Prolia 60 mg/mL Syringe 60 mg SUBCUT [id number] betamethasone dipropionate 0.05 % cream 1 applic topical BID trazodone 50 mg tablet 50 mg PO BEDTIME PRN (Reason: insomnia) SPS (with sorbitol) 15-20 gram/60 mL suspension 60 ml PO 2 TIMES PER WEEK azelastine 137 mcg (0.1 %) spray,non-aerosol 2 spray INTRANASAL 2XD duloxetine 20 mg capsule,delayed release(DR/EC) 20 mg PO DAILY hydrocodone-acetaminophen 5-325 mg tablet 1 tab PO TID PRN (Reason: pain) albuterol sulfate [Proventil HFA] 6.7 GM HFA aerosol inhaler 2 inh INH Q6H PRN (Reason: SOB) baclofen 20 mg tablet 20 mg PO TID budesonide-formoterol [Symbicort] 80-4.5 mcg/actuation HFA aerosol inhaler 2 puff inhalation DAILY clopidogrel [Plavix] 75 mg tablet 75 mg PO QDAY Patient Comments: WILL STOP PER DR GRAY'S INSTRUCTIONS famotidine [Pepcid] 20 mg tablet 20 mg PO BID gabapentin 300 mg capsule 300 mg PO TID Nurtec ODT 75 mg tablet,disintegrating 75 mg PO DAILY PRN (Reason: ANTI-MIGRAINE) Rx Instructions: as a single dose; not to exceed 1 dose per 24 hrs OR 15 doses per 30 days tamsulosin [Flomax] 0.4 mg capsule 0.4 mg PO QDAY levocetirizine [Xyzal] 5 mg tablet 5 mg PO QPM divalproex 250 mg tablet,delayed release (DR/EC) 250 mg PO BID Did you review [place] [employer] for ALL controlled substances?: Not Applicable Discussed opioids are addictive and Narcan is available by prescription or from pharmacy.: No Condition: Stable Referrals: RAOUL HUBER [Primary Care Provider, MEDICAL] - 02/17/25 11:15 am
== END 2025-02-16 10:15 | disposition home or self-care (01) | DRG 189 ==
LOC: ED 08:17 → MEDSURG B 10:49
PROVIDERS: ADMIT Hospitalist; ATTEND Physician Assistant